=== PATIENT | male | born 1955 | race Caucasian/White ===

== ENCOUNTER 2017-09-01 13:01 | Emergency (ER) | payer OTHER ==
[~2017-09-01] VITALS: Ht 170.2 cm; Wt 59.5 kg
[2017-09-01 13:04] VITALS: Ht 170.2 cm; Wt 59.5 kg
[2017-09-01] MEDS ORDERED: KETOROLAC 30 MG INJ IM STA (13:58)
[2017-09-01] MEDS ORDERED: HYDR-906 PO (13:59)
[2017-09-01] MEDS ORDERED: IBUP800T25 PO (13:59)
[2017-09-01] MEDS ORDERED: CYCL-319 PO (13:59)
--- NOTE | 2017-09-01 14:06 | ERD ---
ER Documentation Chief Complaint Chief Complaint lower back pain since friday HPI Patient is a 62-year-old male who presents with right-sided lower back pain he has had since Friday. 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 He has been taking Aleve and Motrin but it does not help. He denies any bowel or bladder incontinence or saddle anesthesia. Denies any dysuria hematuria increased urinary frequency. Pain is worse with movement. Denies any fever. ROS All systems reviewed and are negative except as per history of present illness. Medications Home Meds Active Scripts Hydrocodone/Acetaminophen (Bantam 5-325 Tablet) 1 Each Tablet, 1 TAB PO Q6H Y for PAIN, #20 TAB Prov:FARZANEH MONTEMAYOR PA-C 09/01/17 Ibuprofen* (Motrin*) 800 Mg Tab, 800 MG PO Q6, #30 TAB Prov:FARZANEH MONTEMAYOR PA-C 09/01/17 Cyclobenzaprine Hcl* (Cyclobenzaprine Hcl*) 10 Mg Tablet, 10 MG PO QHS, #15 TAB Prov:FARZANEH MONTEMAYOR PA-C 09/01/17 FmHx Family History: No diabetes Physical Exam Vitals Vital Signs Date Time Temp Pulse Resp B/P Pulse Ox O2 Delivery O2 Flow Rate FiO2 09/01/17 13:04 99.2 88 18 106/64 96 Physical Exam INITIAL VITAL SIGNS: Reviewed by me GENERAL: Awake, alert and oriented x 4, well appearing, nontoxic, speaking in full sentences. No acute distress HEAD: Atraumatic NECK: Supple. No masses. Full range of motion. No meningismus. No midline tenderness. RESPIRATORY: Clear to auscultation bilaterally. Symmetric chest wall rise. No wheezing or rales. No accessory muscle use. CV: Regular rate and rhythm. No murmurs, rubs, or gallops. ABDOMEN: Soft, non-distended. Nontender. Negative Bertrand. Negative McBurneys point tenderness. No CVA tenderness bilaterally. No guarding. No rebound. EXTREMITIES: No clubbing or cyanosis. No edema. Moving all extremities normally. BACK: No midline tenderness to palpation. No step-offs. Results 24 hrs Current Medications Medications (Trade) Dose Ordered Sig/Lan Route PRN Reason Start Time Stop Time Status Last Admin Dose Admin Ketorolac Tromethamine (Toradol) 30 mg ONCE STAT IM 09/01/17 13:58 09/01/17 13:59 DC Procedures/MDM The differential diagnosis includes but is not limited to muscle strain, ligament strain, contusion, arthritis, discogenetic disease, non-musculoskeletal , cauda equina syndrome, cord compression, abscess and others. Patient's pain is most likely musculoskeletal. He is ambulatory neurovascular intact. He has no bowel or bladder incontinence or saddle anesthesia. He has no urinary symptoms. I offered an x-ray but he declined but accepted Toradol. I discharged her with ibuprofen, Flexeril, and a small amount of Bantam. Patient counseled regarding my diagnostic impression and care plan. Prior to discharge all questions answered. Pt agrees with treatment plan and understands strict return precautions. Pt is instructed to follow up with primary care provider within 24-48 hours. Precautionary instructions provided including instructions to return to the ER if not improving or for any worsening or changing symptoms or concerns. Departure Diagnosis: Primary Impression: Back pain Condition: Stable Patient Instructions: Back Pain (Acute Or Chronic) Additional Instructions: Call your primary care doctor TOMORROW for an appointment during the next 1-2 days.See the doctor sooner or return here if your condition worsens before your appointment time. FARZANEH MONTEMAYOR PA-C Sep 01, 2017 14:06
== END 2017-09-01 14:15 | disposition home or self-care (01) ==
LOC: FTE 13:01
DX: M54.5 Low back pain (principal)
CPT/HCPCS: 96372; J1885; Z7502

== ENCOUNTER 2018-09-30 17:30 | Emergency (ER) | END 2018-09-30 19:22 | disposition home or self-care (01) ==

== ENCOUNTER 2019-01-08 15:32 | Inpatient (IN) | payer OTHER ==
[~2019-01-08] VITALS: Ht 162.6 cm; Wt 60.6 kg
[~2019-01-08 15:32] MED LIST: ALBU18HF INHALATION; ATOR40TA68 PO; IBUP800T48 PO
[2019-01-08] MEDS ORDERED: SODIUM CHLORIDE 0.9% 1L BAG IV* STA (15:49)
[2019-01-08] MEDS ORDERED: SIMV40TA2 PO (17:14)
[2019-01-08] MEDS ORDERED: LEVOFLOXACIN 750MG/D5W (PMX) 150 ML IVPB ONE (17:30)
[2019-01-08] MEDS ORDERED: KETOROLAC 15 MG INJ IV STA (17:48)
[2019-01-08] MEDS ORDERED: ACETAMINOPHEN 325 MG TAB PO ONE (18:00)
--- NOTE | 2019-01-08 20:06 | ERD ---
ER Documentation Chief Complaint Chief Complaint pt bib self with c/o fever for a few days HPI This is a 63-year-old male with a past medical history of hyperlipidemia who is presenting with fever, chills, body aches, productive cough of clear/yellow sputum, nausea but no vomiting and mild shortness of breath. The patient also reports waxing and waning palpitations, and he feels very warm. He does not endorse any exacerbating or alleviating factors. The patient has had no headache or vision changes. The patient does not endorse neck or back pain. The patient denies lightheadedness or dizziness. The patient has had no chest pain or trouble breathing. The patient denies nausea or vomiting. The patient denies abdominal pain. The patient denies changes to bowel movements or urination. The patient has had no focal deficits. The patient has had no weakness or numbness or tingling to the face or extremities. ROS All systems reviewed and are negative except as per history of present illness. Medications Home Meds Reported Medications Simvastatin* (Zocor*) 40 Mg Tablet, 40 MG PO QHS, #30 TAB 01/08/19 Discontinued Reported Medications Atorvastatin* (Atorvastatin*) 40 Mg Tablet, 40 MG PO QHS, #30 TAB 09/30/18 Discontinued Scripts Albuterol Sulfate* (Ventolin HFA*) 18 Gm Hfa.aer.ad, 2 PUFF INHALATION Q4H, #1 INHALER Prov:HUE STEPHENS MD 09/30/18 Ibuprofen* (Motrin*) 800 Mg Tab, 800 MG PO Q6H PRN for PAIN AND OR ELEVATED TEMP, #30 TAB Prov:HUE STEPHENS MD 09/30/18 Allergies Allergies: Coded Allergies: No Known Allergy (Unverified , 09/30/18) PMhx/Soc Medical and Surgical Hx: pt denies Medical Hx, pt denies Surgical Hx Hx Cardiac Disorders: Yes (Hyperlipidemia) Hx Miscellaneous Medical Probl: Yes (back pain) Hx Alcohol Use: No Hx Substance Use: No Hx Tobacco Use: No Smoking Status: Never smoker FmHx Family History: No diabetes Physical Exam Vitals Vital Signs Date Temp Pulse Resp B/P (MAP) Pulse Ox O2 O2 Flow FiO2 Time Delivery Rate 01/08/19 101.0 19:30 01/08/19 102 23 97/62 (74) 93 Nasal 2.0 19:17 Cannula 01/08/19 103.1 17:55 01/08/19 103.1 114 16 106/62 98 Nasal 16:42 (77) Cannula 01/08/19 Nasal 2 15:55 Cannula 01/08/19 104.6 134 20 113/57 87 15:35 (75) Physical Exam Const: No apparent distress, well-developed, well-nourished Head: Normocephalic, Atraumatic Eyes: Normal Conjunctiva. Extraocular movements intact. Pupils equal, round and reactive to light ENT: Normal External Ears, Nose and Mouth. Neck: Full range of motion. No meningismus. Resp: Decreased breath sounds in the right lung base. No wheezes, rales or rhonchi. No respiratory distress. Cardio: Regular rhythm. Tachycardia. No murmurs, rubs or gallops Abd: Soft, non tender, non distended. Normal bowel sounds Skin: No petechiae or rashes Back: No midline tenderness. No CVA tenderness Ext: No cyanosis, or edema Neur: Awake and alert, oriented 4. Cranial nerves intact. No facial droop. Normal strength, sensation and coordination. Psych: Normal Mood and Affect Result Diagram: 01/08/19 1556 01/08/19 1556 Results 24 hrs Laboratory Tests Test 01/08/19 15:55 01/08/19 15:56 Urine Color YELLOW Urine Clarity CLEAR Urine pH 6.0 Urine Specific [place] 1.013 Urine Ketones NEGATIVE mg/dL Urine Nitrite NEGATIVE mg/dL Urine Bilirubin NEGATIVE mg/dL Urine Urobilinogen NEGATIVE mg/dL Urine Leukocyte Esterase NEGATIVE [place]/ul Urine Hemoglobin NEGATIVE mg/dL Urine Glucose NEGATIVE mg/dL Urine Total Protein NEGATIVE mg/dl POC Venous Lactate 1.3 mmol/L White Blood Count 9.4 10^3/ul Red Blood Count 4.67 10^6/ul Hemoglobin 13.9 g/dl Hematocrit 41.7 % Mean Corpuscular Volume 89.3 fl Mean Corpuscular Hemoglobin 29.8 pg Mean Corpuscular Hemoglobin Concent 33.3 g/dl Red Cell Distribution Width 12.4 % Platelet Count 208 10^3/UL Mean Platelet Volume 9.2 fl Immature Granulocytes % 0.200 % Neutrophils % 88.9 % Lymphocytes % 7.7 % Monocytes % 1.8 % Eosinophils % 1.0 % Basophils % 0.4 % Nucleated Red Blood Cells % 0.0 /100WBC Immature Granulocytes # 0.020 10^3/ul Neutrophils # 8.4 10^3/ul Lymphocytes # 0.7 10^3/ul Monocytes # 0.2 10^3/ul Eosinophils # 0.1 10^3/ul Basophils # 0.0 10^3/ul Nucleated Red Blood Cells # 0.0 10^3/ul Prothrombin Time 12.0 Sec Prothrombin Time Ratio 0.9 INR International Normalized Ratio 0.88 Activated Partial Thromboplast Time 28.2 Sec Sodium Level 140 mmol/L Potassium Level 3.7 mmol/L Chloride Level 103 mmol/L Carbon Dioxide Level 27 mmol/L Anion Gap 10 Blood Urea Nitrogen 16 mg/dl Creatinine 1.23 mg/dl Est Glomerular Filtrat Rate mL/min 59 mL/min Glucose Level 108 mg/dl Calcium Level 9.3 mg/dl Total Bilirubin 0.2 mg/dl Direct Bilirubin 0.00 mg/dl Indirect Bilirubin 0.2 mg/dl Aspartate Amino Transf (AST/SGOT) 34 IU/L Alanine Aminotransferase (ALT/SGPT) 29 IU/L Alkaline Phosphatase 70 IU/L Troponin I < 0.012 ng/ml Total Protein 7.2 g/dl Albumin 4.4 g/dl Globulin 2.80 g/dl Albumin/Globulin Ratio 1.57 Current Medications Medications Dose Sig/Lan Start Time Status Last (Trade) Ordered Route PRN Stop Time Admin Dose Reason Admin Sodium 1,820 ml BOLUS OVER 2 01/08/19 DC 01/08/19 Chloride HOURS STAT 15:49 01/08/19 16:18 (NS) IV* 15:50 150 ml @ ONCE ONCE 01/08/19 DC 01/08/19 Levofloxacin/ 100 mls/hr IVPB 17:30 01/08/19 17:45 Dextrose 18:59 Ketorolac 15 mg ONCE STAT 01/08/19 DC 01/08/19 Tromethamine IV 17:48 01/08/19 17:55 (Toradol) 17:49 650 mg ONCE ONCE 01/08/19 DC 01/08/19 Acetaminophen PO 18:00 01/08/19 17:55 (Tylenol 18:01 Tab) Procedures/MDM MDM The patient's presentation warrants further investigation. Previous medical records, if available, were reviewed. LABS The patient's laboratory testing was obtained and reviewed. No emergent treatment was required unless described below. CBC: No E/o of systemic infection or thrombocytopenia. Mild normocytic anemia. Chemistry: No E/o severe acidosis or alkalosis or renal failure or liver disease or diabetic ketoacidosis PT/INR: No E/o significant coagulopathy Lactate: No E/o severe sepsis Troponin: No E/o acute ischemia Urine: No E/o acute infection or hematuria Influenza: Negative EKG EKG read by me: Rate/Rhythm: Sinus tachycardia at 113 bpm Intervals: Normal [place]: Normal Impression: No evidence of acute ischemia. Sinus tachycardia IMAGING Imaging and Radiology interpretation reviewed. CXR FINDINGS: The cardiomediastinal silhouette is within normal limits. Mild opacity in the medial right lung base. There is no evidence of significant pleural e ffusion or pneumothorax. No suspicious osseous lesions. IMPRESSION: Mild opacity in the medial right lung base may represent atelectasis or infiltrate. Electronically viewed and signed by Physician Fabricio on 01/08/2019 16:35 TREATMENT/DISPOSITION The patient is presenting with symptoms most consistent with pneumonia. The patient was tachycardic and febrile when he first arrived. A septic workup was completed. The patient has no evidence of endorgan damage. The patient's lactic acid is normal. I have low suspicion for sepsis in this patient and I do not feel the patient requires admission for further management. The patient was given a sepsis bolus in the emergency department. The patient was also given a dose of Levaquin for what appears to be a right lower lobe pneumonia. The patient was treated with Toradol and Tylenol for his fever. He may continue to treat his fever at home with Tylenol or ibuprofen. The patient will require antibiotics in an outpatient setting. Upon reevaluation of the patient, symptoms have improved. No emergent diagnoses were identified. At this time, I feel that the patient stable for discharge. The patient was instructed to follow-up with a primary care physician in 1-3 days. The patient will be given strict precautions with which to return to the emergency department. Prescriptions: Levaquin, ibuprofen Disclaimer: Inadvertent spelling and grammatical errors are likely due to EHR/dictation software use and do not reflect on the overall quality of patient care. Note that the electronic time recorded on this note does not necessarily reflect the actual time of the patient encounter. Departure Diagnosis: Primary Impression: Right lower lobe pneumonia Pneumonia type: due to unspecified organism Qualified Codes: J18.1 - Lobar pneumonia, unspecified organism Additional Impressions: Fever Fever type: unspecified Qualified Codes: R50.9 - Fever, unspecified Tachycardia Myalgia Normocytic anemia Condition: Stable RIIS AGUILERA MD Jan 08, 2019 20:05
[2019-01-08] MEDS ORDERED: IBUP-1542 PO (20:08)
[2019-01-08] MEDS ORDERED: LEVO750T25 PO (20:08)
[2019-01-08] MEDS ORDERED: ACET500C5 PO (20:08)
[2019-01-08] MEDS ORDERED: ACETAMINOPHEN 325 MG TAB PO PRN (21:00)
[2019-01-08] MEDS ORDERED: ONDANSETRON 4 MG INJ IV PRN (21:00)
[2019-01-08 22:49] VITALS: PULSE 95
[2019-01-08 23:00] VITALS: Ht 162.6 cm; Wt 60.6 kg
[2019-01-08 23:23] VITALS: BP 96/53; PULSE 94; RESP 20
--- NOTE | 2019-01-08 23:57 | HP ---
Date/Time of Note Date/Time of Note DATE: 01/08/19 TIME: 23:57 Assessment/Plan VTE Prophylaxis Pharmacological prophylaxis: heparin Lines/Catheters IV Catheter Type (from Nrsg): [place] Assessment/Plan Assessment/Plan 1. Sepsis: Secondary to pneumonia -IV antibiotic, IV fluid -Follow-up culture results -Influenza negative 2. Dyslipidemia: Continue statin Result Diagram: 01/08/19 1556 01/08/19 1556 Results 24hrs Laboratory Tests Test 01/08/19 15:55 01/08/19 15:56 01/08/19 21:16 Urine Color YELLOW Urine Clarity CLEAR Urine pH 6.0 Urine Specific [place] 1.013 Urine Ketones NEGATIVE Urine Nitrite NEGATIVE Urine Bilirubin NEGATIVE Urine Urobilinogen NEGATIVE Urine Leukocyte Esterase NEGATIVE Urine Hemoglobin NEGATIVE Urine Glucose NEGATIVE Urine Total Protein NEGATIVE POC Venous Lactate 1.3 White Blood Count 9.4 Red Blood Count 4.67 L Hemoglobin 13.9 L Hematocrit 41.7 L Mean Corpuscular Volume 89.3 Mean Corpuscular Hemoglobin 29.8 Mean Corpuscular Hemoglobin Concent 33.3 Red Cell Distribution Width 12.4 Platelet Count 208 Mean Platelet Volume 9.2 Immature Granulocytes % 0.200 Neutrophils % 88.9 H Lymphocytes % 7.7 L Monocytes % 1.8 Eosinophils % 1.0 Basophils % 0.4 Nucleated Red Blood Cells % 0.0 Immature Granulocytes # 0.020 Neutrophils # 8.4 H Lymphocytes # 0.7 L Monocytes # 0.2 L Eosinophils # 0.1 Basophils # 0.0 Nucleated Red Blood Cells # 0.0 Prothrombin Time 12.0 Prothrombin Time Ratio 0.9 INR International Normalized Ratio 0.88 Activated Partial Thromboplast Time 28.2 Sodium Level 140 Potassium Level 3.7 Chloride Level 103 Carbon Dioxide Level 27 Anion Gap 10 Blood Urea Nitrogen 16 Creatinine 1.23 Est Glomerular Filtrat Rate mL/min 59 L Glucose Level 108 Calcium Level 9.3 Total Bilirubin 0.2 Direct Bilirubin 0.00 Indirect Bilirubin 0.2 Aspartate Amino Transf (AST/SGOT) 34 Alanine Aminotransferase (ALT/SGPT) 29 Alkaline Phosphatase 70 Troponin I < 0.012 Total Protein 7.2 Albumin 4.4 Globulin 2.80 Albumin/Globulin Ratio 1.57 Lactic Acid Level 1.2 HPI/ROS Admit Date/Time Admit Date/Time Jan 08, 2019 at 20:52 Hx of Present Illness This is a 63-year-old male with a history of dyslipidemia who presents the ER complaining of fever/chills, cough and nausea. Symptoms been going on for the past few days. Cough has been pretty much dry. When he presented to ER, he was febrile with a temperature of 1 4.6, tachycardic with heart rate of 134 and hypoxic with O2 sat of 87%. Initial blood pressure was 113/57 but at one point he was hypotensive with a blood pressure of 83/60. Chest x-ray shows mild opacity in the right lung base. PMH/Family/Social Past Medical History Medications Current Medications Ondansetron HCl (Zofran Inj) 4 mg ER BRIDGE PRN IV NAUSEA/VOMITING; Start 01/08/19 at 21:00; Stop 01/09/19 at 20:59 Acetaminophen (Tylenol Tab) 650 mg ER BRIDGE PRN PO .MILD PAIN 1-3 OR TEMP; Start 01/08/19 at 21:00; Stop 01/09/19 at 20:59 Coded Allergies: No Known Allergy (Unverified , 09/30/18) Social History Smoking Status: Light tobacco smoker Exam/Review of Systems Vital Signs Vitals Vital Signs Date Temp Pulse Resp B/P (MAP) Pulse Ox O2 O2 Flow FiO2 Time Delivery Rate 01/08/19 94 20 96/53 (67) 96 Nasal 2.0 23:23 Cannula 01/08/19 99.4 21:21 Exam Exam Past Medical History: see hpi Past Surgical History Past Surgical Hx: other (see hpi) Family History Significant Family History: no pertinent family hx Social History Alcohol Use: other Smoking Status: Unknown if ever smoked Drug Use: other Medications Exam Eyes: PERRL ENMT: mucosa pink and moist Respiratory: normal air movement Cardiovascular: nl pulses Gastrointestinal: soft Extremities: normal pulses DAHLIA GUILLORY MD Jan 08, 2019 23:57
[2019-01-09] VITALS (10 sets, daily range): BP systolic 102–119; BP diastolic 58–64; PULSE 85–111; RESP 16–18
[2019-01-09] MEDS ORDERED: HYDROCODONE/APAP (5/325) TAB PO PRN
[2019-01-09] MEDS ORDERED: NACL 0.9% 3 ML SYG IV SCH
[2019-01-09] MEDS ORDERED: ONDANSETRON 4 MG INJ IV PRN
[2019-01-09] MEDS ORDERED: ALBUTEROL/IPRATROPIUM (NEB) 3 ML AMP HHN PRN
[2019-01-09] MEDS ORDERED: SOD CHLORIDE 0.9% 1,000 ML IV ONE (00:30)
[2019-01-09] MEDS: SOD CHLORIDE 0.9% 1,000 ML IV SCH ×3 (01:23→19:08)
[2019-01-09] MEDS: ACETAMINOPHEN 325 MG TAB PO PRN ×2 (05:52→20:11)
[2019-01-09] MEDS ORDERED: AL HYDROX/MG HYDROX/SIMETH 30 ML CUP PO PRN (06:00)
[2019-01-09] MEDS: CEFTRIAXONE 1 GM/50 ML (PMX) 50 ML IVPB SCH ×2 (09:10→20:11)
[2019-01-09] MEDS: AZITHROMYCIN 500MG/NS (PMX) 250 ML IVPB SCH (09:13)
[2019-01-09] MEDS: FAMOTIDINE 20 MG TAB PO SCH (09:13)
--- NOTE | 2019-01-09 10:35 | PN ---
Date/Time of Note Date/Time of Note DATE: 01/09/19 TIME: 10:35 Objective Vitals Vital Signs Date Temp Pulse Resp B/P (MAP) Pulse Ox O2 O2 Flow FiO2 Time Delivery Rate 01/09/19 85 08:00 01/09/19 99.7 18 102/58 95 Nasal 07:20 (73) Cannula 01/08/19 2.0 23:23 Intake and Output 01/08/19 01/08/19 01/09/19 1515:00 23:00 07:00 IntakeIntake Total 900 ml OutputOutput Total 900 ml BalanceBalance 0 ml Results Result Diagram: 01/08/19 1556 01/08/19 1556 Medications Medications Current Medications Ondansetron HCl (Zofran Inj) 4 mg ER BRIDGE PRN IV NAUSEA/VOMITING; Start 01/08/19 at 21:00; Stop 01/09/19 at 20:59 Acetaminophen (Tylenol Tab) 650 mg ER BRIDGE PRN PO .MILD PAIN 1-3 OR TEMP; Start 01/08/19 at 21:00; Stop 01/09/19 at 20:59 Sodium Chloride 1,000 ml @ 100 mls/hr Q10H IV Last administered on 01/09/19at 01:23; Admin Dose 100 MLS/HR; Start 01/09/19 at 00:00; Stop 01/10/19 at 23:00 IV Flush (NS 3 ml) 3 ml PER PROTOCOL IV ; Start 01/09/19 at 00:00 Ondansetron HCl (Zofran Inj) 4 mg Q6H PRN IV NAUSEA/VOMITING; Start 01/09/19 at 00:00 Acetaminophen (Tylenol Tab) 650 mg Q6H PRN PO .PAIN 1-3 OR TEMP Last administered on 01/09/19at 05:52; Admin Dose 650 MG; Start 01/09/19 at 00:00 Acetaminophen/ Hydrocodone Bitart ([place] (5/325)) 1 tab Q6H PRN PO .PAIN 4-6; Start 01/09/19 at 00:00 Albuterol/ Ipratropium (Duoneb) 3 ml Q2H RESP THERAPY PRN HHN SHORTNESS OF BREATH; Start 01/09/19 at 00:00 Ceftriaxone Sodium 50 ml @ 100 mls/hr Q12H IVPB Last administered on 01/09/19at 09:10; Admin Dose 100 MLS/HR; Start 01/09/19 at 09:00 Azithromycin 250 ml @ 250 mls/hr DAILY IVPB Last administered on 01/09/19at 09: 13; Admin Dose 250 MLS/HR; Start 01/09/19 at 09:00 Atorvastatin Calcium (Lipitor) 20 mg DAILY@21 PO ; Start 01/09/19 at 21:00 Influenza Virus Vaccine Quadrival (Fluzone) 0.5 ml ONCE ONCE IM* ; Start 01/10/19 at 10:00; Stop 01/10/19 at 10:01 Al Hydrox/Mg Hydrox/Simethicone (Mag-Al Plus) 30 ml Q6H PRN PO GASTROINTESTINAL UPSET; Start 01/09/19 at 06:00 Famotidine (Pepcid) 20 mg DAILY PO Last administered on 01/09/19at 09:13; Admin Dose 20 MG; Start 01/09/19 at 09:00 Guaifenesin/ Codeine Phosphate (Robitussin Ac Liquid Cup) 5 ml Q4H PRN PO cough; Start 01/09/19 at 10:30; Status UNV Albuterol/ Ipratropium (Duoneb) 3 ml Q6HWA RESP THERAPY HHN ; Start 01/09/19 at 14:00; Status UNV VTE Prophylaxis Risk score (from [place])>0 risk: 2 [place] [facility] [place] Lines/Catheters IV Catheter Type: White in Place: No Assessment/Plan Hospital Course Subjective Patient still complaining of shortness of breath and persistent cough keeping him up Objective Physical exam General: Patient is laying in bed and answers questions appropriately Mentation: Patient is alert and oriented 4, Head: Normocephalic atraumatic Eyes: EOMI, pupils reactive to light Neck: Supple, nontender, midline Respiratory: Wheezing to auscultation bilaterally, but worse on the right Cardiovascular: regular rate, no obvious murmurs Gastrointestinal: non-tender to palpation, bowel sounds heard. Neurological: Moves all extremities spontaneously Skin: No new skin lesions Assessment and plan Pneumonia -DuoNeb -Antitussives as needed -IV antibiotic -CT pending Sepsis -Secondary to above -Culture Dyslipidemia -Continue home meds Disposition -Follow-up with CT of the chest, continue IV antibiotics, patient may go home after 48 hours of being afebrile. Likely Friday. CAROL OLGUIN Jan 09, 2019 10:35
[2019-01-09] MEDS: GUAIFENESIN/CODEINE 5ML CUP PO PRN ×2 (12:59→20:12)
[2019-01-09] MEDS: ALBUTEROL/IPRATROPIUM (NEB) 3 ML AMP HHN SCH ×3 (14:00→19:42)
[2019-01-09] MEDS: ATORVASTATIN 20 MG TAB PO SCH (20:11)
[2019-01-09] MEDS ORDERED: NON-FORMULARY/PATIENT OWN MED (Simvastatin* (Zocor*) 40 MG) PO SCH (21:00)
[2019-01-10] VITALS (12 sets, daily range): BP systolic 93–115; BP diastolic 51–62; PULSE 80–112; RESP 18–25
[2019-01-10] MEDS: ACETAMINOPHEN 325 MG TAB PO PRN ×2 (03:54→16:20)
[2019-01-10] MEDS: SOD CHLORIDE 0.9% 1,000 ML IV SCH ×2 (06:32→16:00)
[2019-01-10] MEDS: AZITHROMYCIN 500MG/NS (PMX) 250 ML IVPB SCH (08:30)
[2019-01-10] MEDS: CEFTRIAXONE 1 GM/50 ML (PMX) 50 ML IVPB SCH (08:30)
[2019-01-10] MEDS: FAMOTIDINE 20 MG TAB PO SCH (08:30)
[2019-01-10] MEDS: ALBUTEROL/IPRATROPIUM (NEB) 3 ML AMP HHN SCH ×3 (09:26→19:50)
[2019-01-10] MEDS: PIPER-TAZO 3.375 GM IV (PMX) 100 ML IVPB SCH ×2 (12:59→20:29)
--- NOTE | 2019-01-10 13:31 | PN ---
Date/Time of Note Date/Time of Note DATE: 01/10/19 TIME: 13:28 Objective Vitals Vital Signs Date Temp Pulse Resp B/P (MAP) Pulse Ox O2 O2 Flow FiO2 Time Delivery Rate 01/10/19 97.6 101 22 104/60 96 Nasal 11:23 (75) Cannula 01/10/19 2.0 09:26 01/09/19 28 19:43 Intake and Output 01/09/19 01/09/19 01/10/19 1414:59 22:59 06:59 IntakeIntake Total 2020 ml 1650 ml OutputOutput Total 2475 ml 1950 ml BalanceBalance -455 ml -300 ml Results Result Diagram: 01/10/19 0543 01/10/1943 Medications Medications Current Medications Sodium Chloride 1,000 ml @ 100 mls/hr Q10H IV Last administered on 01/10/19at 06:32; Admin Dose 100 MLS/HR; Start 01/09/19 at 00:00; Stop 01/10/19 at 23:00 IV Flush (NS 3 ml) 3 ml PER PROTOCOL IV ; Start 01/09/19 at 00:00 Ondansetron HCl (Zofran Inj) 4 mg Q6H PRN IV NAUSEA/VOMITING; Start 01/09/19 at 00:00 Acetaminophen (Tylenol Tab) 650 mg Q6H PRN PO .PAIN 1-3 OR TEMP Last ad ministered on 01/10/19at 03:54; Admin Dose 650 MG; Start 01/09/19 at 00:00 Acetaminophen/ Hydrocodone Bitart ([place] (5/325)) 1 tab Q6H PRN PO .PAIN 4-6; Start 01/09/19 at 00:00 Albuterol/ Ipratropium (Duoneb) 3 ml Q2H RESP THERAPY PRN HHN SHORTNESS OF BREATH; Start 01/09/19 at 00:00 Atorvastatin Calcium (Lipitor) 20 mg DAILY@21 PO Last administered on 01/09/19at 20:11; Admin Dose 20 MG; Start 01/09/19 at 21:00 Al Hydrox/Mg Hydrox/Simethicone (Mag-Al Plus) 30 ml Q6H PRN PO GASTROINTESTINAL UPSET; Start 01/09/19 at 06:00 Famotidine (Pepcid) 20 mg DAILY PO Last administered on 01/10/19 08:30; Admin D ose 20 MG; Start 01/09/19 at 09:00 Guaifenesin/ Codeine Phosphate (Robitussin Ac Liquid Cup) 5 ml Q4H PRN PO cough Last administered on 01/09/19 20:12; Admin Dose 5 ML; Start 01/09/19 at 10:30 Albuterol/ Ipratropium (Duoneb) 3 ml Q6HWA RESP THERAPY HHN Last administered on 01/10/19 09:26; Admin Dose 3 ML; Start 01/09/19 at 14:00 Piperacillin Sod/ Tazobactam Sod 100 ml @ 200 mls/hr Q6 IVPB Last administered on 01/10/19 12:59; Admin Dose 200 MLS/HR; Start 01/10/19 at 12:00 VTE Prophylaxis Risk score (from [facility] [place]0 risk: 3 SCD applied (from [facility] [place]): Yes Lines/Catheters IV Catheter Type: White in Place: No Assessment/Plan Hospital Course Subjective Patient has shortness of breath still. Objective Physical exam General: Patient is laying in bed and answers questions appropriately Mentation: Patient is alert and oriented 4, Head: Normocephalic atraumatic Eyes: EOMI, pupils reactive to light Neck: Supple, nontender, midline Respiratory: Wheezing to auscultation bilaterally, but worse on the right Cardiovascular: regular rate, no obvious murmurs Gastrointestinal: non-tender to palpation, bowel sounds heard. Neurological: Moves all extremities spontaneously Skin: No new skin lesions Assessment and plan Pneumonia -DuoNeb -Antitussives as needed -IV antibiotic changed to Zosyn -CT showing extensive multifocal pneumonia Sepsis -Secondary to above -Culture Dyslipidemia -Continue home meds Disposition -Continued fever, shortness of breath, IV antibiotic change, monitor. CAROL OLGUIN Jan 10, 2019 13:31
[2019-01-10] MEDS ORDERED: POTASSIUM PHOSPHATE 15 MM in SOD CHLORIDE 0.9% 250 ML IVPB ONE (15:00)
[2019-01-10] MEDS: BUDESONIDE (NEB) 0.5MG/2ML AMP HHN SCH (20:09)
[2019-01-10] MEDS: ATORVASTATIN 20 MG TAB PO SCH (20:29)
[2019-01-10] MEDS: GUAIFENESIN/CODEINE 5ML CUP PO PRN (21:32)
[2019-01-11] VITALS (12 sets, daily range): BP systolic 97–155; BP diastolic 50–86; PULSE 60–100; RESP 18
[2019-01-11] MEDS: PIPER-TAZO 3.375 GM IV (PMX) 100 ML IVPB SCH ×5 (00:33→23:05)
[2019-01-11] MEDS: ACETAMINOPHEN 325 MG TAB PO PRN ×3 (00:38→23:06)
[2019-01-11] MEDS: GUAIFENESIN/CODEINE 5ML CUP PO PRN (01:51)
[2019-01-11] MEDS: FAMOTIDINE 20 MG TAB PO SCH (09:27)
[2019-01-11] MEDS: ALBUTEROL/IPRATROPIUM (NEB) 3 ML AMP HHN SCH ×3 (09:42→20:03)
[2019-01-11] MEDS: BUDESONIDE (NEB) 0.5MG/2ML AMP HHN SCH ×2 (09:44→20:03)
--- NOTE | 2019-01-11 10:11 | PN ---
Date/Time of Note Date/Time of Note DATE: 01/11/19 TIME: 10:11 Assessment/Plan VTE Prophylaxis Risk score (from Ns)>0 risk: 3 SCD applied (from Ns): Yes Pharmacological prophylaxis: NA/contraindicated Pharm contraindication: low risk/ambulating Lines/Catheters IV Catheter Type (from [facility]): Peripheral IV Urinary Cath still in place: No Assessment/Plan Assessment/Plan 1. Multifocal Pneumonia - Continue on IV antibiotics and Duonebs and monitor for improvement - Zosyn started yesterday given continued fevers - CT chest results noted - if no improvement, will consult Pulm for recommendations 2. Sepsis secondary to PNA - Still with fever but WBC nl - culture results noted 3. Dyslipidemia - Continue home meds 4. Disposition - Continue current treatment. Will need to remain afebrile for 24 hrs prior to discharge Result Diagram: 01/11/19 0546 01/11/19 0546 Results 24hrs Laboratory Tests Test 01/11/19 05:46 White Blood Count 10.3 Red Blood Count 4.03 L Hemoglobin 12.2 L Hematocrit 36.5 L Mean Corpuscular Volume 90.6 Mean Corpuscular Hemoglobin 30.3 Mean Corpuscular Hemoglobin Concent 33.4 Red Cell Distribution Width 13.3 Platelet Count 140 Mean Platelet Volume 10.5 H Immature Granulocytes % 0.800 H Neutrophils % 86.9 H Lymphocytes % 8.9 L Monocytes % 3.2 Eosinophils % 0.0 Basophils % 0.2 Nucleated Red Blood Cells % 0.0 Immature Granulocytes # 0.080 H Neutrophils # 8.9 H Lymphocytes # 0.9 Monocytes # 0.3 Eosinophils # 0.0 Basophils # 0.0 Nucleated Red Blood Cells # 0.0 Sodium Level 140 Potassium Level 3.8 Chloride Level 106 Carbon Dioxide Level 24 Anion Gap 10 Blood Urea Nitrogen 10 Creatinine 1.15 Est Glomerular Filtrat Rate mL/min > 60 Glucose Level 96 Calcium Level 8.1 L Phosphorus Level 2.4 L Magnesium Level 2.1 Subjective 24 Hr Interval Summary Free Text/Dictation Patient still with mild shortness of breath, coughing and fever overnight. Appears comfortable this am. Exam/Review of Systems Exam Vitals Vital Signs Date Temp Pulse Resp B/P (MAP) Pulse Ox O2 O2 Flow FiO2 Time Delivery Rate 01/11/19 96 4.0 09:58 3/4/19 94 20 Nasal 09:56 Cannula 01/11/19 98.7 103/61 07:23 (75) 01/09/19 28 19:43 Intake and Output 01/10/19 01/10/19 01/11/19 1515:00 23:00 07:00 IntakeIntake Total 300 ml 1195 ml 1150 ml OutputOutput Total 2200 ml 1625 ml BalanceBalance 300 ml -1005 ml -475 ml Exam General: Patient is laying in bed and answers questions appropriately Neck: Supple Respiratory: Wheezing to auscultation bilaterally, worse on the right Cardiovascular: regular rate and rhythm, no obvious murmurs Gastrointestinal: soft, non-tender to palpation, bowel sounds heard. Neurological: Moves all extremities spontaneously Skin: No new skin lesions Results Results 24hrs Laboratory Tests Test 01/11/19 05:46 White Blood Count 10.3 Red Blood Count 4.03 L Hemoglobin 12.2 L Hematocrit 36.5 L Mean Corpuscular Volume 90.6 Mean Corpuscular Hemoglobin 30.3 Mean Corpuscular Hemoglobin Concent 33.4 Red Cell Distribution Width 13.3 Platelet Count 140 Mean Platelet Volume 10.5 H Immature Granulocytes % 0.800 H Neutrophils % 86.9 H Lymphocytes % 8.9 L Monocytes % 3.2 Eosinophils % 0.0 Basophils % 0.2 Nucleated Red Blood Cells % 0.0 Immature Granulocytes # 0.080 H Neutrophils # 8.9 H Lymphocytes # 0.9 Monocytes # 0.3 Eosinophils # 0.0 Basophils # 0.0 Nucleated Red Blood Cells # 0.0 Sodium Level 140 Potassium Level 3.8 Chloride Level 106 Carbon Dioxide Level 24 Anion Gap 10 Blood Urea Nitrogen 10 Creatinine 1.15 Est Glomerular Filtrat Rate mL/min > 60 Glucose Level 96 Calcium Level 8.1 L Phosphorus Level 2.4 L Magnesium Level 2.1 Medications Medication Current Medications IV Flush (NS 3 ml) 3 ml PER PROTOCOL IV ; Start 01/09/19 at 00:00 Ondansetron HCl (Zofran Inj) 4 mg Q6H PRN IV NAUSEA/VOMITING; Start 01/09/19 at 00:00 Acetaminophen (Tylenol Tab) 650 mg Q6H PRN PO .PAIN 1-3 OR TEMP Last administer ed on 01/11/19at 00:38; Admin Dose 650 MG; Start 01/09/19 at 00:00 Acetaminophen/ Hydrocodone Bitart ([place] (5/325)) 1 tab Q6H PRN PO .PAIN 4-6; Start 01/09/19 at 00:00 Albuterol/ Ipratropium (Duoneb) 3 ml Q2H RESP THERAPY PRN HHN SHORTNESS OF BREATH; Start 01/09/19 at 00:00 Atorvastatin Calcium (Lipitor) 20 mg DAILY@21 PO Last administered on 01/10/19 20:29; Admin Dose 20 MG; Start 01/09/19 at 21:00 Al Hydrox/Mg Hydrox/Simethicone (Mag-Al Plus) 30 ml Q6H PRN PO GASTROINTESTINAL UPSET; Start 01/09/19 at 06:00 Famotidine (Pepcid) 20 mg DAILY PO Last administered on 01/11/19 09:27; Admin Dose 20 MG; Start 01/09/19 at 09:00 Guaifenesin/ Codeine Phosphate (Robitussin Ac Liquid Cup) 5 ml Q4H PRN PO cough Last administered on 01/11/19 01:51; Admin Dose 5 ML; Start 01/09/19 at 10:30 Albuterol/ Ipratropium (Duoneb) 3 ml Q6HWA RESP THERAPY HHN Last administered on 01/11/19 09:42; Admin Dose 3 ML; Start 01/09/19 at 14:00 Piperacillin Sod/ Tazobactam Sod 100 ml @ 200 mls/hr Q6 IVPB Last administered on 01/11/19 05:51; Admin Dose 200 MLS/HR; Start 01/10/19 at 12:00 Budesonide (Pulmicort (Neb)) 0.5 mg BID RESP THERAPY HHN Last administered on 01/11/19 09:44; Admin Dose 0.5 MG; Start 01/10/19 at 20:00 ANKIT DOYLE MD Jan 11, 2019 10:11
[2019-01-11] MEDS: ATORVASTATIN 20 MG TAB PO SCH (20:40)
[2019-01-12] VITALS (11 sets, daily range): BP systolic 92–119; BP diastolic 52–63; PULSE 73–108; RESP 18
[2019-01-12] MEDS: PIPER-TAZO 3.375 GM IV (PMX) 100 ML IVPB SCH ×3 (06:28→17:32)
[2019-01-12] MEDS: ALBUTEROL/IPRATROPIUM (NEB) 3 ML AMP HHN SCH ×3 (07:40→19:47)
[2019-01-12] MEDS: BUDESONIDE (NEB) 0.5MG/2ML AMP HHN SCH ×2 (07:41→19:47)
[2019-01-12] MEDS: FAMOTIDINE 20 MG TAB PO SCH (09:01)
--- NOTE | 2019-01-12 10:34 | PN ---
Date/Time of Note Date/Time of Note DATE: 01/12/19 TIME: 10:34 Assessment/Plan VTE Prophylaxis Risk score (from Ns)>0 risk: 3 SCD applied (from Ns): Yes Pharmacological prophylaxis: NA/contraindicated Pharm contraindication: low risk/ambulating Lines/Catheters IV Catheter Type (from Nrsg): Peripheral IV Urinary Cath still in place: No Assessment/Plan Assessment/Plan 1. Multifocal Pneumonia - Still with fevers and ID consultation placed for further recommendations - Continue on IV antibiotics and Duonebs and monitor for improvement - CT chest results noted 2. Sepsis secondary to PNA - Still with fever but WBC nl - culture results noted 3. Dyslipidemia - Continue home meds 4. Disposition - ID consultation for antibiotic recommendations given persistent fevers daily Result Diagram: 01/11/1947 01/11/1947 Subjective 24 Hr Interval Summary Free Text/Dictation Patient continues with nightly fevers and cough with productive sputum. Exam/Review of Systems Exam Vitals Vital Signs Date Temp Pulse Resp B/P (MAP) Pulse Ox O2 O2 Flow FiO2 Time Delivery Rate 01/12/19 93 08:34 01/12/19 20 98 Nasal 4.0 07:41 Cannula 01/12/19 99.4 111/63 07:34 (79) 01/09/19 28 19:43 Intake and Output 01/11/19 01/11/19 01/12/19 1515:00 23:00 07:00 IntakeIntake Total 1000 ml 900 ml OutputOutput Total 1500 ml 950 ml BalanceBalance -500 ml -50 ml Exam General: Patient is laying in bed and answers questions appropriately Neck: Supple Respiratory: Coarse breath sounds, worse on the right Cardiovascular: regular rate and rhythm, no obvious murmurs Gastrointestinal: soft, non-tender to palpation, bowel sounds heard. Neurological: Moves all extremities spontaneously Skin: No new skin lesions Medications Medication Current Medications IV Flush (NS 3 ml) 3 ml PER PROTOCOL IV ; Start 01/09/19 at 00:00 Ondansetron HCl (Zofran Inj) 4 mg Q6H PRN IV NAUSEA/VOMITING; Start 01/09/19 at 00:00 Acetaminophen (Tylenol Tab) 650 mg Q6H PRN PO .PAIN 1-3 OR TEMP Last administered on 01/11/19at 23:06; Admin Dose 650 MG; Start 01/09/19 at 00:00 Acetaminophen/ Hydrocodone Bitart ([place] (5/325)) 1 tab Q6H PRN PO .PAIN 4-6; Start 01/09/19 at 00:00 Albuterol/ Ipratropium (Duoneb) 3 ml Q2H RESP THERAPY PRN HHN SHORTNESS OF BREATH; Start 01/09/19 at 00:00 Atorvastatin Calcium (Lipitor) 20 mg DAILY@21 PO Last administered on 01/11/19 20:40; Admin Dose 20 MG; Start 01/09/19 at 21:00 Al Hydrox/Mg Hydrox/Simethicone (Mag-Al Plus) 30 ml Q6H PRN PO GASTROINTESTINAL UPSET; Start 01/09/19 at 06:00 Famotidine (Pepcid) 20 mg DAILY PO Last administered on 01/12/19 09:01; Admin Dose 20 MG; Start 01/09/19 at 09:00 Guaifenesin/ Codeine Phosphate (Robitussin Ac Liquid Cup) 5 ml Q4H PRN PO cough Last administered on 01/11/19 01:51; Admin Dose 5 ML; Start 01/09/19 at 10:30 Albuterol/ Ipratropium (Duoneb) 3 ml Q6HWA RESP THERAPY HHN Last administered on 01/12/19 07:40; Admin Dose 3 ML; Start 01/09/19 at 14:00 Piperacillin Sod/ Tazobactam Sod 100 ml @ 200 mls/hr Q6 IVPB Last administered on 01/12/19 06:28; Admin Dose 200 MLS/HR; Start 01/10/19 at 12:00 Budesonide (Pulmicort (Neb)) 0.5 mg BID RESP THERAPY HHN Last administered on 01/12/19 07:41; Admin Dose 0.5 MG; Start 01/10/19 at 20:00 ANKIT DOYLE MD Jan 12, 2019 10:34
[2019-01-12] MEDS: ACETAMINOPHEN 325 MG TAB PO PRN (12:10)
--- NOTE | 2019-01-12 12:54 | CONS ---
DATE OF ADMISSION: 01/08/2019 DATE OF CONSULTATION: 01/12/2019 REASON FOR CONSULTATION: Antibiotic management. HISTORY OF PRESENT ILLNESS: The patient is a 63-year-old male who came in with fevers for a number of days and is being seen for antibiotic management. His past problems include: 1. Hyperlipidemia. 2. Low back pain. The patient presents with fever, chills, body aches, productive cough of clear yellow sputum, nausea. He reports intermittent palpitations and the feeling of warmth. He has no headaches or visual prob lems. PAST MEDICAL HISTORY: As outlined. FAMILY HISTORY: Noncontributory. SOCIAL HISTORY: Does not smoke, drink or abuse drugs. ALLERGIES: NONE TO PENICILLIN, SULFA OR FOODS. MEDICATIONS: Per chart. REVIEW OF SYSTEMS: As per HPI. LABORATORY STUDIES: On admission, his white count was up to 104.6. His white count was 9.4 with 90% neutrophils, hemoglobin and hematocrit of 13.9 and 41.7, platelet count 208,000. BUN and creatinine 16/1.23 and glucose of 108. Blood cultures and urine cultures were done and were negative. Influen za A and B were negative. IMAGING STUDIES: A chest x-ray showed mild opacity in the medial right lung base, which may represen t atelectasis or infiltrate. A CT scan on the of the chest showed severe extensive multifocal pn eumonia, most severe in the lung bases. Diffuse, scattered, benign, reactive mediastinal adenopathy. Atherosclerotic vascular calcifications. HOSPITAL COURSE: The patient was placed on Levaquin initially. The patient was felt to be septic se condary to pneumonia. Currently, his white count is 7.3, hemoglobin and hematocrit 12.2/36.5, platel et count 140,000. BUN and creatinine 10/1.5. Because of ongoing fevers, patient was placed on Zosyn . His temperature maximum for January 11 was 101. Currently, he is afebrile. White count is 10.3 on . PHYSICAL EXAMINATION: GENERAL: The patient is awake, responsive, in no acute distress. VITAL SIGNS: Stable. He is afebrile. Temperature maximum 101. SKIN: Without generalized rash. HEENT: Within normal limits. NECK: Supple. LYMPH NODES: None palpable. CHEST: Decreased breath sounds at the bases, especially the right base. HEART: Without murmur or gallop. He is tachycardic. ABDOMEN: Soft, nontender, without organosplenomegaly or masses. EXTREMITIES: Without cyanosis, clubbing, or edema. RECTAL AND GENITAL EXAMS: Deferred. NEUROLOGICAL EVALUATION: No focal neurological abnormalities. IMPRESSION AND PLAN: The patient is a 63-year-old male who comes in now with extensive pneumonia, pr obably bacterial, multifocal pneumonia and is currently placed on Zosyn, which is appropriate. In te maryse of his blood cultures, they are negative. Urine cultures negative. We probably should get a spu ira culture. I will dictate my findings to the hospitalist. Dictated By: FLORIN FORD MD SILVIA/NTS Conf#: [id number] DID#: [id number] CC: DAHLIA GUILLORY MD;*End*
[2019-01-12] MEDS: ATORVASTATIN 20 MG TAB PO SCH (21:41)
[2019-01-13] VITALS (13 sets, daily range): BP systolic 93–119; BP diastolic 53–67; PULSE 71–98; RESP 17–20
[2019-01-13] MEDS: PIPER-TAZO 3.375 GM IV (PMX) 100 ML IVPB SCH ×4 (01:09→17:21)
[2019-01-13] MEDS: BUDESONIDE (NEB) 0.5MG/2ML AMP HHN SCH ×2 (08:33→19:38)
[2019-01-13] MEDS: ALBUTEROL/IPRATROPIUM (NEB) 3 ML AMP HHN SCH ×3 (08:33→19:38)
[2019-01-13] MEDS: FAMOTIDINE 20 MG TAB PO SCH (09:51)
[2019-01-13] MEDS: ACETAMINOPHEN 325 MG TAB PO PRN (09:51)
[2019-01-13] MEDS: GUAIFENESIN/CODEINE 5ML CUP PO PRN (11:18)
--- NOTE | 2019-01-13 13:31 | CONS ---
Assessment/Plan Assessment/Plan Hospital Course (Demo Recall) Patient is alert ambulating in the room still with low-grade fevers, T-max 100.3, no labs this morning Microbiology: Cultures have been negative Antimicrobials: Patient remains on Zosyn Physical examination: This is a well-developed well-nourished elderly man who is alert in no distress. Head atraumatic normocephalic. Neck is supple. Chest rise symmetrical breath sounds diminished bases. Heart: S1-S2. Abdomen soft bowel sounds present. Assessment: 1. Acute hypoxemic respiratory failure 2. Multifocal pneumonia 3. Resolving sepsis Plan: Patient is clinically stable and feels better, we will will swab nares for MRSA and try to obtain sputum cultures, add oral doxycycline and levofloxacin Consultation Date/Type/Reason Admit Date/Time Jan 08, 2019 at 20:52 Initial Consult Date Type of Consult id Date/Time of Note DATE: 01/13/19 TIME: 13:30 Exam/Review of Systems Exam Vitals Vital Signs Date Temp Pulse Resp B/P (MAP) Pulse Ox O2 O2 Flow FiO2 Time Delivery Rate 01/13/19 74 12:35 01/13/19 100.3 18 94/53 (67) 96 11:29 01/13/19 Nasal 5.0 08:36 Cannula 01/09/19 28 19:43 Intake and Output 01/12/19 01/12/19 01/13/19 1414:59 22:59 06:59 IntakeIntake Total 100 ml 820 ml 640 ml OutputOutput Total 550 ml 300 ml BalanceBalance 100 ml 270 ml 340 ml Results Result Diagram: 01/11/19 0546 01/11/19 0546 Medications Medication Current Medications IV Flush (NS 3 ml) 3 ml PER PROTOCOL IV ; Start 01/09/19 at 00:00 Ondansetron HCl (Zofran Inj) 4 mg Q6H PRN IV NAUSEA/VOMITING; Start 01/09/19 at 00:00 Acetaminophen (Tylenol Tab) 650 mg Q6H PRN PO .PAIN 1-3 OR TEMP Last administered on 01/13/19at 09:51; Admin Dose 650 MG; Start 01/09/19 at 00:00 Acetaminophen/ Hydrocodone Bitart ([place] (5/325)) 1 tab Q6H PRN PO .PAIN 4-6; Start 01/09/19 at 00:00 Albuterol/ Ipratropium (Duoneb) 3 ml Q2H RESP THERAPY PRN HHN SHORTNESS OF BREATH; Start 01/09/19 at 00:00 Atorvastatin Calcium (Lipitor) 20 mg DAILY@21 PO Last administered on 01/12/19 21:41; Admin Dose 20 MG; Start 01/09/19 at 21:00 Al Hydrox/Mg Hydrox/Simethicone (Mag-Al Plus) 30 ml Q6H PRN PO GASTROINTESTINAL UPSET; Start 01/09/19 at 06:00 Famotidine (Pepcid) 20 mg DAILY PO Last administered on 01/13/19 09:51; Admin Dose 20 MG; Start 01/09/19 at 09:00 Guaifenesin/ Codeine Phosphate (Robitussin Ac Liquid Cup) 5 ml Q4H PRN PO cough Last administered on 01/13/19 11:18; Admin Dose 5 ML; Start 01/09/19 at 10:30 Albuterol/ Ipratropium (Duoneb) 3 ml Q6HWA RESP THERAPY HHN Last administered on 01/13/19 08:33; Admin Dose 3 ML; Start 01/09/19 at 14:00 Piperacillin Sod/ Tazobactam Sod 100 ml @ 200 mls/hr Q6 IVPB Last administered on 01/13/19 11:20; Admin Dose 200 MLS/HR; Start 01/10/19 at 12:00 Budesonide (Pulmicort (Neb)) 0.5 mg BID RESP THERAPY HHN Last administered on 01/13/19 08:33; Admin Dose 0.5 MG; Start 01/10/19 at 20:00 DANIEL EDDY NP Jan 13, 2019 13:31
--- NOTE | 2019-01-13 16:58 | PN ---
Date/Time of Note Date/Time of Note DATE: 01/13/19 TIME: 16:56 Assessment/Plan VTE Prophylaxis Risk score (from Ns)>0 risk: 3 SCD applied (from Ns): Yes Pharmacological prophylaxis: NA/contraindicated Pharm contraindication: low risk/ambulating Lines/Catheters IV Catheter Type (from Nrsg): Peripheral IV Urinary Cath still in place: No Assessment/Plan Assessment/Plan 1. Multifocal Pneumonia - ID consultation appreciated and adjustments made to antibiotics - Pulmonology consultation placed for further recommendations given patient still hypoxic - Continue on IV antibiotics and Duonebs and monitor for improvement - CT chest results noted 2. Sepsis secondary to PNA - Still with fever but WBC nl - culture results noted 3. Dyslipidemia - Continue home meds 4. Disposition - Pulmonology consultation placed for further recommendations given patient st ill hypoxic Result Diagram: 01/11/19 0546 01/11/19 0546 Subjective 24 Hr Interval Summary Free Text/Dictation Patient still with low grade fever and persistent coughing with productive sputum. Exam/Review of Systems Exam Vitals Vital Signs Date Temp Pulse Resp B/P (MAP) Pulse Ox O2 O2 Flow FiO2 Time Delivery Rate 01/13/19 71 16:16 01/13/19 98.2 17 93/55 (68) 96 16:09 01/13/19 Nasal 5.0 14:20 Cannula 01/09/19 28 19:43 Intake and Output 01/12/19 01/12/19 01/13/19 1515:00 23:00 07:00 IntakeIntake Total 100 ml 820 ml 640 ml OutputOutput Total 550 ml 300 ml BalanceBalance 100 ml 270 ml 340 ml Exam General: Patient is laying in bed and answers questions appropriately Neck: Supple Respiratory: Coarse breath sounds, no wheezing appreciated Cardiovascular: regular rate and rhythm, no obvious murmurs Gastrointestinal: soft, non-tender to palpation, bowel sounds heard. Neurological: Moves all extremities spontaneously Skin: No new skin lesions Medications Medication Current Medications IV Flush (NS 3 ml) 3 ml PER PROTOCOL IV ; Start 01/09/19 at 00:00 Ondansetron HCl (Zofran Inj) 4 mg Q6H PRN IV NAUSEA/VOMITING; Start 01/09/19 at 00:00 Acetaminophen (Tylenol Tab) 650 mg Q6H PRN PO .PAIN 1-3 OR TEMP Last administered on 01/13/19 09:51; Admin Dose 650 MG; Start 01/09/19 at 00:00 Acetaminophen/ Hydrocodone Bitart ([place] (5/325)) 1 tab Q6H PRN PO .PAIN 4-6; Start 01/09/19 at 00:00 Albuterol/ Ipratropium (Duoneb) 3 ml Q2H RESP THERAPY PRN HHN SHORTNESS OF BREATH; Start 01/09/19 at 00:00 Atorvastatin Calcium (Lipitor) 20 mg DAILY@21 PO Last administered on 01/12/19 21:41; Admin Dose 20 MG; Start 01/09/19 at 21:00 Al Hydrox/Mg Hydrox/Simethicone (Mag-Al Plus) 30 ml Q6H PRN PO GASTROINTESTINAL UPSET; Start 01/09/19 at 06:00 Famotidine (Pepcid) 20 mg DAILY PO Last administered on 01/13/19 09:51; Admin Dose 20 MG; Start 01/09/19 at 09:00 Guaifenesin/ Codeine Phosphate (Robitussin Ac Liquid Cup) 5 ml Q4H PRN PO cough Last administered on 01/13/19 11:18; Admin Dose 5 ML; Start 01/09/19 at 10:30 Albuterol/ Ipratropium (Duoneb) 3 ml Q6HWA RESP THERAPY HHN Last administered on 01/13/19 12:10; Admin Dose 3 ML; Start 01/09/19 at 14:00 Piperacillin Sod/ Tazobactam Sod 100 ml @ 200 mls/hr Q6 IVPB Last administered on 01/13/19 11:20; Admin Dose 200 MLS/HR; Start 01/10/19 at 12:00 Budesonide (Pulmicort (Neb)) 0.5 mg BID RESP THERAPY HHN Last administered on 01/13/19 08:33; Admin Dose 0.5 MG; Start 01/10/19 at 20:00 Doxycycline Hyclate (Vibramycin) 100 mg BID PO ; Start 01/13/19 at 21:00 Levofloxacin (Levaquin) 500 mg DAILY@06 PO ; Start 01/14/19 at 06:00 ANKIT DOYLE MD Jan 13, 2019 16:58
[2019-01-13] MEDS: DOXYCYCLINE 100 MG TAB PO SCH (21:39)
[2019-01-13] MEDS: ATORVASTATIN 20 MG TAB PO SCH (21:39)
[2019-01-14] VITALS (10 sets, daily range): BP systolic 96–115; BP diastolic 58–64; PULSE 71–94; RESP 18–20
[2019-01-14] MEDS: PIPER-TAZO 3.375 GM IV (PMX) 100 ML IVPB SCH ×5 (00:43→23:19)
[2019-01-14] MEDS: ACETAMINOPHEN 325 MG TAB PO PRN (02:00)
[2019-01-14] MEDS: GUAIFENESIN/CODEINE 5ML CUP PO PRN (02:03)
[2019-01-14] MEDS: LEVOFLOXACIN 500 MG TAB PO SCH (06:12)
[2019-01-14] MEDS: FAMOTIDINE 20 MG TAB PO SCH (08:12)
[2019-01-14] MEDS: DOXYCYCLINE 100 MG TAB PO SCH ×2 (08:12→21:26)
[2019-01-14] MEDS: ALBUTEROL/IPRATROPIUM (NEB) 3 ML AMP HHN SCH ×3 (08:40→19:47)
[2019-01-14] MEDS: BUDESONIDE (NEB) 0.5MG/2ML AMP HHN SCH ×2 (08:41→19:47)
--- NOTE | 2019-01-14 09:17 | PN ---
Date/Time of Note Date/Time of Note DATE: 01/14/19 TIME: 09:17 Assessment/Plan VTE Prophylaxis Risk score (from [facility])>0 risk: 4 SCD applied (from [facility]): Yes Pharmacological prophylaxis: NA/contraindicated Pharm contraindication: low risk/ambulating Lines/Catheters IV C[facility]ter Type (from [facility]): Peripheral IV Urinary Cath still in place: No Assessment/Plan Assessment/Plan 1. Multifocal Pneumonia - Pulmonology consultation appreciated and recommending addition of steroids - ID consultation appreciated and adjustments made to antibiotics. Will continue on Levaquin, Doxy, and Zosyn - continue bronchodilators - CT chest results noted 2. Sepsis secondary to PNA - remains afebrile with nl WBC - culture results noted 3. Dyslipidemia - Continue home meds 4. Disposition - Patient still desaturating even while on 4L supplemental O2 - Pulm and ID recommendations appreciated Result Diagram: 01/14/19 0711 01/14/19 0711 Results 24hrs Laboratory Tests Test 01/14/19 07:11 White Blood Count 4.4 #L Red Blood Count 3.76 L Hemoglobin 11.2 L Hematocrit 34.7 L Mean Corpuscular Volume 92.3 Mean Corpuscular Hemoglobin 29.8 Mean Corpuscular Hemoglobin Concent 32.3 Red Cell Distribution Width 13.2 Platelet Count 183 # Mean Platelet Volume 9.8 Immature Granulocytes % 4.800 H Neutrophils % Segmented Neutrophils % (Manual) 45 Band Neutrophils % (Manual) 6 H Lymphocytes % Lymphocytes % (Manual) 38 Reactive Lymphocytes % (Manual) 2 H Monocytes % Monocytes % (Manual) 7 Eosinophils % Basophils % Metamyelocytes % (manual) 1 H Myelocytes % (Manual) 1 H Nucleated Red Blood Cells % 1 H Immature Granulocytes # 0.210 H Neutrophils # Neutrophils # (Manual) 2.0 Band Neutrophils # 0.2 Lymphocytes (Manual) 1.6 Lymphocytes # Reactive Lymphocytes # 0.0 Monocytes # Monocytes # (Manual) 0.3 Eosinophils # Basophils # Metamyelocytes # 0.0 Myelocytes # 0.0 Nucleated Red Blood Cells # Platelet Estimate NORMAL Giant Platelets 3 H Polychromasia 1+ Sodium Level 141 Potassium Level 4.0 Chloride Level 102 Carbon Dioxide Level 30 Anion Gap 9 Blood Urea Nitrogen 12 Creatinine 0.98 Glucose Level 101 Calcium Level 8.2 L Phosphorus Level 3.2 Magnesium Level 2.5 Albumin 3.3 Subjective 24 Hr Interval Summary Free Text/Dictation Patient still with shortness of breath and coughing. No acute overnight events. No overnight fevers as well. Exam/Review of Systems Exam Vitals Vital Signs Date Temp Pulse Resp B/P (MAP) Pulse Ox O2 O2 Flow FiO2 Time Delivery Rate 01/14/19 82 09:01 01/14/19 4.0 08:49 01/14/19 20 89 Nasal 40 08:41 Cannula 01/14/19 98.3 102/64 07:37 (77) Intake and Output 01/13/19 01/13/19 01/14/19 1515:00 23:00 07:00 IntakeIntake Total 100 ml 900 ml 1020 ml OutputOutput Total 650 ml 775 ml BalanceBalance 100 ml 250 ml 245 ml Exam General: Patient is laying in bed and answers questions appropriately Neck: Supple Respiratory: Diminished breath sounds, no crackles appreciated, no wheezing appreciated Cardiovascular: regular rate and rhythm, no obvious murmurs Gastrointestinal: soft, non-tender to palpation, bowel sounds heard. Neurological: Moves all extremities spontaneously Skin: No new skin lesions Results Results 24hrs Laboratory Tests Test 01/14/19 07:11 White Blood Count 4.4 #L Red Blood Count 3.76 L Hemoglobin 11.2 L Hematocrit 34.7 L Mean Corpuscular Volume 92.3 Mean Corpuscular Hemoglobin 29.8 Mean Corpuscular Hemoglobin Concent 32.3 Red Cell Distribution Width 13.2 Platelet Count 183 # Mean Platelet Volume 9.8 Immature Granulocytes % 4.800 H Neutrophils % Segmented Neutrophils % (Manual) 45 Band Neutrophils % (Manual) 6 H Lymphocytes % Lymphocytes % (Manual) 38 Reactive Lymphocytes % (Manual) 2 H Monocytes % Monocytes % (Manual) 7 Eosinophils % Basophils % Metamyelocytes % (manual) 1 H Myelocytes % (Manual) 1 H Nucleated Red Blood Cells % 1 H Immature Granulocytes # 0.210 H Neutrophils # Neutrophils # (Manual) 2.0 Band Neutrophils # 0.2 Lymphocytes (Manual) 1.6 Lymphocytes # Reactive Lymphocytes # 0.0 Monocytes # Monocytes # (Manual) 0.3 Eosinophils # Basophils # Metamyelocytes # 0.0 Myelocytes # 0.0 Nucleated Red Blood Cells # Platelet Estimate NORMAL Giant Platelets 3 H Polychromasia 1+ Sodium Level 141 Potassium Level 4.0 Chloride Level 102 Carbon Dioxide Level 30 Anion Gap 9 Blood Urea Nitrogen 12 Creatinine 0.98 Glucose Level 101 Calcium Level 8.2 L Phosphorus Level 3.2 Magnesium Level 2.5 Albumin 3.3 Medications Medication Current Medications IV Flush (NS 3 ml) 3 ml PER PROTOCOL IV ; Start 01/09/19 at 00:00 Ondansetron HCl (Zofran Inj) 4 mg Q6H PRN IV NAUSEA/VOMITING Last administered on 01/14/19 09:11; Admin Dose 4 MG; Start 01/09/19 at 00:00 Acetaminophen (Tylenol Tab) 650 mg Q6H PRN PO .PAIN 1-3 OR TEMP Last administered on 01/14/19 02:00; Admin Dose 650 MG; Start 01/09/19 at 00:00 Acetaminophen/ Hydrocodone Bitart ([place] (5/325)) 1 tab Q6H PRN PO .PAIN 4-6; Start 01/09/19 at 00:00 Albuterol/ Ipratropium (Duoneb) 3 ml Q2H RESP THERAPY PRN HHN SHORTNESS OF BREATH; Start 01/09/19 at 00:00 Atorvastatin Calcium (Lipitor) 20 mg DAILY@21 PO Last administered on 01/13/19 21:39; Admin Dose 20 MG; Start 01/09/19 at 21:00 Al Hydrox/Mg Hydrox/Simethicone (Mag-Al Plus) 30 ml Q6H PRN PO GASTROINTESTINAL UPSET; Start 01/09/19 at 06:00 Famotidine (Pepcid) 20 mg DAILY PO Last administered on 01/14/19 08:12; Admin Dose 20 MG; Start 01/09/19 at 09:00 Guaifenesin/ Codeine Phosphate (Robitussin Ac Liquid Cup) 5 ml Q4H PRN PO cough Last administered on 01/14/19 02:03; Admin Dose 5 ML; Start 01/09/19 at 10:30 Albuterol/ Ipratropium (Duoneb) 3 ml Q6HWA RESP THERAPY HHN Last administered on 01/14/19 08:40; Admin Dose 3 ML; Start 01/09/19 at 14:00 Piperacillin Sod/ Tazobactam Sod 100 ml @ 200 mls/hr Q6 IVPB Last administered on 01/14/19 06:12; Admin Dose 200 MLS/HR; Start 01/10/19 at 12:00 Budesonide (Pulmicort (Neb)) 0.5 mg BID RESP THERAPY HHN Last administered on 01/14/19at 08:41; Admin Dose 0.5 MG; Start 01/10/19 at 20:00 Doxycycline Hyclate (Vibramycin) 100 mg BID PO Last administered on 01/14/19 08:12; Admin Dose 100 MG; Start 01/13/19 at 21:00 Levofloxacin (Levaquin) 500 mg DAILY@06 PO Last administered on 01/14/19at 06:12; Admin Dose 500 MG; Start 01/14/19 at 06:00 ANKIT DOYLE MD Jan 14, 2019 09:17
[2019-01-14] MEDS: METHYLPREDNISOLONE 40 MG INJ IV SCH ×3 (11:57→23:18)
--- NOTE | 2019-01-14 12:33 | CONS ---
DATE OF ADMISSION: 01/08/2019 DATE OF CONSULTATION: REASON FOR CONSULTATION: Shortness of breath. Thank you, Dr. Hui, for this consultation. HISTORY OF PRESENT ILLNESS: This is a 63-year-old gentleman admitted with several-day history of inc reasing cough, congestion, shortness of breath, influenza negative, was found to have fever and tachy pnea on admission. Most recent CT scan demonstrates severe extensive multifocal pneumonia and reacti ve mediastinal adenopathy. The patient is slowly improving with antibiotics, never amounted signific ant white count. He did have mild bandemia. He has significant tobacco history, continues to smoke half a pack per day, smoked for 20 plus years. PAST MEDICAL HISTORY: 1. Tobacco use. 2. Hyperlipidemia. MEDICATIONS: Per chart. ALLERGIES: NONE. SOCIAL HISTORY: Positive tobacco history. Occasional alcohol. No history of drug abuse. FAMILY HISTORY: Noncontributory. SYSTEMS REVIEW: A 12-point review of systems was negative other than mentioned above. PHYSICAL EXAMINATION: GENERAL: Well-nourished, well-developed gentleman, comfortable at rest, in no acute distress. VITAL SIGNS: Currently afebrile, pulse is 90, blood pressure 100/52, O2 saturation 96%, FiO2 of 4 li ters. NECK: Supple. No JVD or lymphadenopathy. CARDIAC: S1, S2. No added sounds or murmurs. CHEST: Diminished air entry bilaterally with rales. ABDOMEN: Soft, nontender. No guarding or rebound. EXTREMITIES: No cyanosis, clubbing, edema. NEUROLOGIC: Grossly intact. No focal deficits. LABORATORY DATA: White count 4.4, hemoglobin 11.2, platelets of 183. Chemistry within normal limits . IMPRESSION AND PLAN: Likely community-acquired pneumonia with possible chronic obstructive pulmonary disease exacerbation given extensive tobacco history. The patient will require: 1. Continue antibiotics. 2. Bronchodilators. 3. Additional steroids. 4. DVT and GI prophylaxis. 5. Advice on smoking cessation. 6. Outpatient pulmonary function testing and repeat CT to ensure resolution of infiltrates. Dictated By: GLADYS JOHNSON MD SV/JORGE Conf#: [id number] DID#: [id number] CC: ANKIT HUI MD; DAHLIA GUILLORY MD;*EndCC*
--- NOTE | 2019-01-14 13:03 | CONS ---
Assessment/Plan Assessment/Plan Hospital Course (Demo Recall) No acute changes patient still gets on and off shortness of breath he is alert ambulating in the room and looks comfortable, T-max yesterday was 100.3. WBC 4.4 platelets 183 bands 6 BUN 12 creatinine 0.98 Antimicrobials: Zosyn, Levaquin, doxycycline Microbiology: Cultures have been negative Physical examination: This is a well-developed well-nourished elderly man who is alert in no distress. Head atraumatic normocephalic. Neck is supple. Chest rise symmetrical breath sounds diminished bases. Heart: S1-S2. Abdomen soft bowel sounds present. Assessment: 1. Acute hypoxemic respiratory failure 2. Multifocal pneumonia 3. Resolving sepsis Plan: Clinically stable, continue antibiotics, await for MRSA swab and sputum cultures, follow chest x-ray in a.m. Consultation Date/Type/Reason Admit Date/Time Jan 08, 2019 at 20:52 Initial Consult Date Type of Consult id Date/Time of Note DATE: 01/14/19 TIME: 13:02 Exam/Review of Systems Exam Vitals Vital Signs Date Temp Pulse Resp B/P (MAP) Pulse Ox O2 O2 Flow FiO2 Time Delivery Rate 01/14/19 94 12:38 01/14/19 98.8 20 100/59 95 Nasal 11:18 (73) Cannula 01/14/19 4.0 08:49 01/14/19 40 08:41 Intake and Output 01/13/19 01/13/19 01/14/19 1515:00 23:00 07:00 IntakeIntake Total 100 ml 900 ml 1020 ml OutputOutput Total 650 ml 775 ml BalanceBalance 100 ml 250 ml 245 ml Results Result Diagram: 01/14/19 0711 01/14/19 0711 Results 24hrs Laboratory Tests Test 01/14/19 07:11 White Blood Count 4.4 #L Red Blood Count 3.76 L Hemoglobin 11.2 L Hematocrit 34.7 L Mean Corpuscular Volume 92.3 Mean Corpuscular Hemoglobin 29.8 Mean Corpuscular Hemoglobin Concent 32.3 Red Cell Distribution Width 13.2 Platelet Count 183 # Mean Platelet Volume 9.8 Immature Granulocytes % 4.800 H Neutrophils % Segmented Neutrophils % (Manual) 45 Band Neutrophils % (Manual) 6 H Lymphocytes % Lymphocytes % (Manual) 38 Reactive Lymphocytes % (Manual) 2 H Monocytes % Monocytes % (Manual) 7 Eosinophils % Basophils % Metamyelocytes % (manual) 1 H Myelocytes % (Manual) 1 H Nucleated Red Blood Cells % 1 H Immature Granulocytes # 0.210 H Neutrophils # Neutrophils # (Manual) 2.0 Band Neutrophils # 0.2 Lymphocytes (Manual) 1.6 Lymphocytes # Reactive Lymphocytes # 0.0 Monocytes # Monocytes # (Manual) 0.3 Eosinophils # Basophils # Metamyelocytes # 0.0 Myelocytes # 0.0 Nucleated Red Blood Cells # Platelet Estimate NORMAL Giant Platelets 3 H Polychromasia 1+ Sodium Level 141 Potassium Level 4.0 Chloride Level 102 Carbon Dioxide Level 30 Anion Gap 9 Blood Urea Nitrogen 12 Creatinine 0.98 Glucose Level 101 Calcium Level 8.2 L Phosphorus Level 3.2 Magnesium Level 2.5 Albumin 3.3 Medications Medication Current Medications IV Flush (NS 3 ml) 3 ml PER PROTOCOL IV ; Start 01/09/19 at 00:00 Ondansetron HCl (Zofran Inj) 4 mg Q6H PRN IV NAUSEA/VOMITING Last administered on 01/14/19at 09:11; Admin Dose 4 MG; Start 01/09/19 at 00:00 Acetaminophen (Tylenol Tab) 650 mg Q6H PRN PO .PAIN 1-3 OR TEMP Last administered on 01/14/19at 02:00; Admin Dose 650 MG; Start 01/09/19 at 00:00 Acetaminophen/ Hydrocodone Bitart ([place] (5/325)) 1 tab Q6H PRN PO .PAIN 4-6; Start 01/09/19 at 00:00 Albuterol/ Ipratropium (Duoneb) 3 ml Q2H RESP THERAPY PRN HHN SHORTNESS OF BREATH; Start 01/09/19 at 00:00 Atorvastatin Calcium (Lipitor) 20 mg DAILY@21 PO Last administered on 01/13/19at 21:39; Admin Dose 20 MG; Start 01/09/19 at 21:00 Al Hydrox/Mg Hydrox/Simethicone (Mag-Al Plus) 30 ml Q6H PRN PO GASTROINTESTINAL UPSET; Start 01/09/19 at 06:00 Famotidine (Pepcid) 20 mg DAILY PO Last administered on 01/14/19at 08:12; Admin Dose 20 MG; Start 01/09/19 at 09:00 Guaifenesin/ Codeine Phosphate (Robitussin Ac Liquid Cup) 5 ml Q4H PRN PO cough Last administered on 01/14/19 02:03; Admin Dose 5 ML; Start 01/09/19 at 10:30 Albuterol/ Ipratropium (Duoneb) 3 ml Q6HWA RESP THERAPY HHN Last administered on 01/14/19 08:40; Admin Dose 3 ML; Start 01/09/19 at 14:00 Piperacillin Sod/ Tazobactam Sod 100 ml @ 200 mls/hr Q6 IVPB Last administered on 01/14/19 11:29; Admin Dose 200 MLS/HR; Start 01/10/19 at 12:00 Budesonide (Pulmicort (Neb)) 0.5 mg BID RESP THERAPY HHN Last administered on 01/14/19 08:41; Admin Dose 0.5 MG; Start 01/10/19 at 20:00 Doxycycline Hyclate (Vibramycin) 100 mg BID PO Last administered on 01/14/19 08:12; Admin Dose 100 MG; Start 01/13/19 at 21:00 Levofloxacin (Levaquin) 500 mg DAILY@06 PO Last administered on 01/14/19 06:12; Admin Dose 500 MG; Start 01/14/19 at 06:00 Methylprednisolone Sodium Succinate (Solu-Medrol) 40 mg Q6 IV Last administered on 01/14/19 11:57; Admin Dose 40 MG; Start 01/14/19 at 12:00 ADNIEL EDDY NP Jan 14, 2019 13:03
[2019-01-14] MEDS: ATORVASTATIN 20 MG TAB PO SCH (21:26)
--- NOTE | 2019-01-15 01:38 | PDOCDIS ---
Discharge Instructions DIAGNOSIS Discharge Diagnosis created in error ACTIVITY: [id number] Bathing Restrictions: [id number] as per recs at accepting facility FOLLOW UP/APPOINTMENTS Follow-up Plan As per accepting hospital ([facility]) recommendations upon dis charge ROGER KNIGHT Jan 15, 2019 01:38
--- NOTE | 2019-01-15 01:40 | DS ---
Date/Time of Note Date/Time of Note DATE: 01/15/19 TIME: 01:38 Discharge Summary Admission/Discharge Info Admit Date/Time Jan 08, 2019 at 20:52 Discharge Date/Time created in Error Discharge Diagnosis Patient Condition: Stable Home Meds Active Scripts Acetaminophen* (Tylophen*) 500 Mg Capsule, 1 CAP PO Q6H PRN for PAIN AND OR ELEVATED TEMP, #20 CAP Prov:IRIS AGUILERA MD 01/08/19 Levofloxacin* (Levaquin*) 750 Mg Tablet, 750 MG PO DAILY for 5 Days, TAB Prov:IRIS AGUILERA MD 01/08/19 Ibuprofen* (Motrin*) 600 Mg Tab, 600 MG PO Q6H PRN for PAIN AND OR ELEVATED TEMP, #30 TAB Prov:IRIS AGUILERA MD 01/08/19 Reported Medications Simvastatin* (Zocor*) 40 Mg Tablet, 40 MG PO QHS, #30 TAB 01/08/19 Discontinued Reported Medications Atorvastatin* (Atorvastatin*) 40 Mg Tablet, 40 MG PO QHS, #30 TAB 09/30/18 Discontinued Scripts Albuterol Sulfate* (Ventolin HFA*) 18 Gm Hfa.aer.ad, 2 PUFF INHALATION Q4H, #1 INHALER Prov:HUE STEPHENS MD 09/30/18 Ibuprofen* (Motrin*) 800 Mg Tab, 800 MG PO Q6H PRN for PAIN AND OR ELEVATED TEMP, #30 TAB Prov:HUE STEPHENS MD 09/30/18 Time spent on discharge: > 30 minutes Pending Labs Laboratory Tests Test 01/14/19 07:11 White Blood Count 4.4 10^3/ul (4.8-10.8) Red Blood Count 3.76 10^6/ul (4.70-6.10) Hemoglobin 11.2 g/dl (14.0-18.0) Hematocrit 34.7 % (42.0-52.0) Mean Corpuscular Volume 92.3 fl (82.0-101.0) Mean Corpuscular Hemoglobin 29.8 pg (29.0-33.0) Mean Corpuscular Hemoglobin Concent 32.3 g/dl (32.0-37.0) Red Cell Distribution Width 13.2 % (11.5-14.5) Platelet Count 183 10^3/UL (140-415) Mean Platelet Volume 9.8 fl (7.4-10.4) Immature Granulocytes % 4.800 % (0.001-0.429) Neutrophils % % (39.0-77.0) Segmented Neutrophils % (Manual) 45 % (39-77) Band Neutrophils % (Manual) 6 % (0-4) Lymphocytes % % (15.0-51.0) Lymphocytes % (Manual) 38 % (15-51) Reactive Lymphocytes % (Manual) 2 % (0-0) Monocytes % % (0.0-11.0) Monocytes % (Manual) 7 % (0-11) Eosinophils % % (0.0-7.0) Basophils % % (0.0-2.0) Metamyelocytes % (manual) 1 % (0-0) Myelocytes % (Manual) 1 % (0-0) Nucleated Red Blood Cells % 1 % (0-0) Immature Granulocytes # 0.210 10^3/ul (0.0-0.031) Neutrophils # 10^3/ul (1.6-7.5) Neutrophils # (Manual) 2.0 10^3/ul (1.6-7.5) Band Neutrophils # 0.2 10^3/ul (0.0-0.6) Lymphocytes (Manual) 1.6 10^3/ul (0.8-2.9) Lymphocytes # 10^3/ul (0.8-2.9) Reactive Lymphocytes # 0.0 10^3/ul (0.0-0.0) Monocytes # 10^3/ul (0.3-0.9) Monocytes # (Manual) 0.3 10^3/ul (0.3-0.9) Eosinophils # 10^3/ul (0.0-0.5) Basophils # 10^3/ul (0.0-0.1) Metamyelocytes # 0.0 10^3/ul (0.0-0.0) Myelocytes # 0.0 10^3/ul (0.0-0.0) Nucleated Red Blood Cells # 10^3/ul (0.0-0.0) Platelet Estimate NORMAL Giant Platelets 3 % (0-0) Polychromasia 1+ (0-0) Sodium Level 141 mmol/L (135-144) Potassium Level 4.0 mmol/L (3.5-5.1) Chloride Level 102 mmol/L (97-110) Carbon Dioxide Level 30 mmol/L (21-31) Anion Gap 9 (5-13) Blood Urea Nitrogen 12 mg/dl (7-20) Creatinine 0.98 mg/dl (0.61-1.24) Glucose Level 101 mg/dl (70-220) Calcium Level 8.2 mg/dl (8.4-10.2) Phosphorus Level 3.2 mg/dl (2.5-4.9) Magnesium Level 2.5 mg/dl (1.7-2.5) Albumin 3.3 g/dl (3.3-4.9) ROGER KNIGHT Jan 15, 2019 01:40
[2019-01-15 02:17] VITALS: BP 117/62; PULSE 67; RESP 18
[2019-01-15] MEDS: LEVOFLOXACIN 500 MG TAB PO SCH (06:34)
[2019-01-15] MEDS: METHYLPREDNISOLONE 40 MG INJ IV SCH ×2 (06:34→11:30)
[2019-01-15] MEDS: PIPER-TAZO 3.375 GM IV (PMX) 100 ML IVPB SCH ×2 (06:34→11:30)
[2019-01-15 07:20] VITALS: BP 99/55; PULSE 76; RESP 18
--- NOTE | 2019-01-15 08:08 | CONS ---
Assessment/Plan Assessment/Plan Assessment/Plan (Daily) Assessment recommendations; 1. Patient admitted with shortness of breath due to severe bilateral community- acquired pneumonia with significant clinical improvement. 2. History of smoking, with likely underlying COPD as well. Continue current supportive care. Continue current antibiotics. Obtain follow- up chest x-ray in 24 hours. Consultation Date/Type/Reason Admit Date/Time Jan 08, 2019 at 20:52 Initial Consult Date Type of Consult Pulmonary Patient condition is stable. Denies any shortness of breath. Complains of cough with scant yellow sputum production. Denies any fever, chills, chest pain, and hemoptysis. General exam; elderly male, ambulatory in the room. Currently no distress. Reason for Consultation HEENT exam; supple neck, no JVD. No lymphadenopathy. Midline trachea. No t hyromegaly. Patient has fair dentition. No neck masses. Chest exam; diminished breath sounds bilaterally S1-S2 audible, no murmurs. Regular rhythm. Abdomen exam; soft, nontender. No organomegaly. Bowel sounds audible. Extremity exam; no peripheral edema clubbing. 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 Date/Time of Note DATE: 01/15/19 TIME: 08:06 Exam/Review of Systems Exam Vitals Vital Signs Date Temp Pulse Resp B/P (MAP) Pulse Ox O2 O2 Flow FiO2 Time Delivery Rate 01/15/19 4.0 04:27 01/15/19 98.2 67 18 117/62 92 02:17 (80) 01/14/19 Nasal 21:00 Cannula 01/14/19 40 13:08 Intake and Output 01/14/19 01/14/19 01/15/19 1515:00 23:00 07:00 IntakeIntake Total 1300 ml 350 ml OutputOutput Total 1600 ml BalanceBalance -300 ml 350 ml Results Result Diagram: 01/15/19 0431 01/15/19 0431 Results 24hrs Laboratory Tests Test 01/15/19 04:31 White Blood Count 3.8 L Red Blood Count 4.02 L Hemoglobin 12.0 L Hematocrit 36.0 L Mean Corpuscular Volume 89.6 Mean Corpuscular Hemoglobin 29.9 Mean Corpuscular Hemoglobin Concent 33.3 Red Cell Distribution Width 12.8 Platelet Count 266 # Mean Platelet Volume 10.0 Immature Granulocytes % 1.800 H Neutrophils % Segmented Neutrophils % (Manual) 61 Band Neutrophils % (Manual) 14 H Lymphocytes % Lymphocytes % (Manual) 17 Reactive Lymphocytes % (Manual) 5 H Monocytes % Monocytes % (Manual) 3 Eosinophils % Basophils % Nucleated Red Blood Cells % 0.0 Immature Granulocytes # 0.070 H Neutrophils # Neutrophils # (Manual) 2.3 Band Neutrophils # 0.5 Lymphocytes (Manual) 0.6 L Lymphocytes # Reactive Lymphocytes # 0.1 H Monocytes # Monocytes # (Manual) 0.1 L Eosinophils # Basophils # Nucleated Red Blood Cells # Platelet Estimate NORMAL Giant Platelets 1 H Sodium Level 144 Potassium Level 4.8 Chloride Level 105 Carbon Dioxide Level 31 Anion Gap 8 Blood Urea Nitrogen 12 Creatinine 0.93 Est Glomerular Filtrat Rate mL/min > 60 Glucose Level 158 Calcium Level 9.0 Phosphorus Level 3.2 Magnesium Level 2.7 H Medications Medication Current Medications IV Flush (NS 3 ml) 3 ml PER PROTOCOL IV ; Start 01/09/19 at 00:00 Ondansetron HCl (Zofran Inj) 4 mg Q6H PRN IV NAUSEA/VOMITING Last administered on 01/14/19at 09:11; Admin Dose 4 MG; Start 01/09/19 at 00:00 Acetaminophen (Tylenol Tab) 650 mg Q6H PRN PO .PAIN 1-3 OR TEMP Last administered on 01/14/19at 02:00; Admin Dose 650 MG; Start 01/09/19 at 00:00 Acetaminophen/ Hydrocodone Bitart ([place] (5/325)) 1 tab Q6H PRN PO .PAIN 4-6; Start 01/09/19 at 00:00 Albuterol/ Ipratropium (Duoneb) 3 ml Q2H RESP THERAPY PRN HHN SHORTNESS OF BREATH; Start 01/09/19 at 00:00 Atorvastatin Calcium (Lipitor) 20 mg DAILY@21 PO Last administered on 01/14/19at 21:26; Admin Dose 20 MG; Start 01/09/19 at 21:00 Al Hydrox/Mg Hydrox/Simethicone (Mag-Al Plus) 30 ml Q6H PRN PO GASTROINTESTINAL UPSET; Start 01/09/19 at 06:00 Famotidine (Pepcid) 20 mg DAILY PO Last administered on 01/14/19at 08:12; Admin Dose 20 MG; Start 01/09/19 at 09:00 Guaifenesin/ Codeine Phosphate (Robitussin Ac Liquid Cup) 5 ml Q4H PRN PO cough Last administered on 01/14/19 02:03; Admin Dose 5 ML; Start 01/09/19 at 10:30 Albuterol/ Ipratropium (Duoneb) 3 ml Q6HWA RESP THERAPY HHN Last administered on 01/14/19 19:47; Admin Dose 3 ML; Start 01/09/19 at 14:00 Piperacillin Sod/ Tazobactam Sod 100 ml @ 200 mls/hr Q6 IVPB Last administered on 01/15/19 06:34; Admin Dose 200 MLS/HR; Start 01/10/19 at 12:00 Budesonide (Pulmicort (Neb)) 0.5 mg BID RESP THERAPY HHN Last administered on 01/14/19 19:47; Admin Dose 0.5 MG; Start 01/10/19 at 20:00 Doxycycline Hyclate (Vibramycin) 100 mg BID PO Last administered on 01/14/19 21:26; Admin Dose 100 MG; Start 01/13/19 at 21:00 Levofloxacin (Levaquin) 500 mg DAILY@06 PO Last administered on 01/15/19 06:34; Admin Dose 500 MG; Start 01/14/19 at 06:00 Methylprednisolone Sodium Succinate (Solu-Medrol) 40 mg Q6 IV Last administered on 01/15/19 06:34; Admin Dose 40 MG; Start 01/14/19 at 12:00 ANDI CASAREZ Jan 15, 2019 08:08
[2019-01-15] MEDS: DOXYCYCLINE 100 MG TAB PO SCH (08:36)
[2019-01-15] MEDS: FAMOTIDINE 20 MG TAB PO SCH (08:36)
--- NOTE | 2019-01-15 09:01 | PN ---
Date/Time of Note Date/Time of Note DATE: 01/15/19 TIME: 09:01 Assessment/Plan VTE Prophylaxis Risk score (from [facility])>0 risk: 3 SCD applied (from [facility]): Yes Pharmacological prophylaxis: NA/contraindicated Pharm contraindication: low risk/ambulating Lines/Catheters IV Catheter Type (from [facility]): Peripheral IV Urinary Cath still in place: No Assessment/Plan Assessment/Plan 1. Multifocal Pneumonia - Patients respiratory status remains stable at rest but still SOB with ambulation. - Pulmonology consultation appreciated and will continue steroids and neb treatments - ID consultation appreciated and adjustments made to antibiotics. Will continue on Levaquin, Doxy, and Zosyn - CT chest results noted 2. Sepsis secondary to PNA - remains afebrile with nl WBC - culture results noted 3. Dyslipidemia - Continue home meds 4. Dark stools - most likely GI irritation from steroids. Will check FOBT - PPI on board - hgb 12 this am which is improvement from yesterday 5. Disposition - Patient still requiring O2 supplementation at 4L - Accepted to [facility] at this time pending bed availability Result Diagram: 01/15/19 0431 01/15/19 0431 Results 24hrs Laboratory Tests Test 01/15/19 04:31 White Blood Count 3.8 L Red Blood Count 4.02 L Hemoglobin 12.0 L Hematocrit 36.0 L Mean Corpuscular Volume 89.6 Mean Corpuscular Hemoglobin 29.9 Mean Corpuscular Hemoglobin Concent 33.3 Red Cell Distribution Width 12.8 Platelet Count 266 # Mean Platelet Volume 10.0 Immature Granulocytes % 1.800 H Neutrophils % Segmented Neutrophils % (Manual) 61 Band Neutrophils % (Manual) 14 H Lymphocytes % Lymphocytes % (Manual) 17 Reactive Lymphocytes % (Manual) 5 H Monocytes % Monocytes % (Manual) 3 Eosinophils % Basophils % Nucleated Red Blood Cells % 0.0 Immature Granulocytes # 0.070 H Neutrophils # Neutrophils # (Manual) 2.3 Band Neutrophils # 0.5 Lymphocytes (Manual) 0.6 L Lymphocytes # Reactive Lymphocytes # 0.1 H Monocytes # Monocytes # (Manual) 0.1 L Eosinophils # Basophils # Nucleated Red Blood Cells # Platelet Estimate NORMAL Giant Platelets 1 H Sodium Level 144 Potassium Level 4.8 Chloride Level 105 Carbon Dioxide Level 31 Anion Gap 8 Blood Urea Nitrogen 12 Creatinine 0.93 Est Glomerular Filtrat Rate mL/min > 60 Glucose Level 158 Calcium Level 9.0 Phosphorus Level 3.2 Magnesium Level 2.7 H Subjective 24 Hr Interval Summary Free Text/Dictation Patient states he was experiencing dark stools this am but denies any denise bleeding. States shortness of breath is improving but still requiring 4L NC. Exam/Review of Systems Exam Vitals Vital Signs Date Temp Pulse Resp B/P (MAP) Pulse Ox O2 O2 Flow FiO2 Time Delivery Rate 01/15/19 98.5 76 18 99/55 (70) 98 Nasal 07:20 Cannula 01/15/19 4.0 04:27 01/14/19 40 13:08 Intake and Output 01/14/19 01/14/19 01/15/19 1515:00 23:00 07:00 IntakeIntake Total 1300 ml 350 ml OutputOutput Total 1600 ml BalanceBalance -300 ml 350 ml Exam General: Patient is laying in bed and answers questions appropriately Neck: Supple Respiratory: Diminished breath sounds, no crackles appreciated, no wheezing appreciated Cardiovascular: regular rate and rhythm, no obvious murmurs Gastrointestinal: soft, non-tender to palpation, bowel sounds heard. Neurological: Moves all extremities spontaneously Skin: No new skin lesions Results Results 24hrs Laboratory Tests Test 01/15/19 04:31 White Blood Count 3.8 L Red Blood Count 4.02 L Hemoglobin 12.0 L Hematocrit 36.0 L Mean Corpuscular Volume 89.6 Mean Corpuscular Hemoglobin 29.9 Mean Corpuscular Hemoglobin Concent 33.3 Red Cell Distribution Width 12.8 Platelet Count 266 # Mean Platelet Volume 10.0 Immature Granulocytes % 1.800 H Neutrophils % Segmented Neutrophils % (Manual) 61 Band Neutrophils % (Manual) 14 H Lymphocytes % Lymphocytes % (Manual) 17 Reactive Lymphocytes % (Manual) 5 H Monocytes % Monocytes % (Manual) 3 Eosinophils % Basophils % Nucleated Red Blood Cells % 0.0 Immature Granulocytes # 0.070 H Neutrophils # Neutrophils # (Manual) 2.3 Band Neutrophils # 0.5 Lymphocytes (Manual) 0.6 L Lymphocytes # Reactive Lymphocytes # 0.1 H Monocytes # Monocytes # (Manual) 0.1 L Eosinophils # Basophils # Nucleated Red Blood Cells # Platelet Estimate NORMAL Giant Platelets 1 H Sodium Level 144 Potassium Level 4.8 Chloride Level 105 Carbon Dioxide Level 31 Anion Gap 8 Blood Urea Nitrogen 12 Creatinine 0.93 Est Glomerular Filtrat Rate mL/min > 60 Glucose Level 158 Calcium Level 9.0 Phosphorus Level 3.2 Magnesium Level 2.7 H Medications Medication Current Medications IV Flush (NS 3 ml) 3 ml PER PROTOCOL IV ; Start 01/09/19 at 00:00 Ondansetron HCl (Zofran Inj) 4 mg Q6H PRN IV NAUSEA/VOMITING Last administered on 01/14/19 09:11; Admin Dose 4 MG; Start 01/09/19 at 00:00 Acetaminophen (Tylenol Tab) 650 mg Q6H PRN PO .PAIN 1-3 OR TEMP Last administered on 01/14/19 02:00; Admin Dose 650 MG; Start 01/09/19 at 00:00 Acetaminophen/ Hydrocodone Bitart ([place] (5/325)) 1 tab Q6H PRN PO .PAIN 4-6; Start 01/09/19 at 00:00 Albuterol/ Ipratropium (Duoneb) 3 ml Q2H RESP THERAPY PRN HHN SHORTNESS OF BREATH; Start 01/09/19 at 00:00 Atorvastatin Calcium (Lipitor) 20 mg DAILY@21 PO Last administered on 01/14/19 21:26; Admin Dose 20 MG; Start 01/09/19 at 21:00 Al Hydrox/Mg Hydrox/Simethicone (Mag-Al Plus) 30 ml Q6H PRN PO GASTROINTESTINAL UPSET; Start 01/09/19 at 06:00 Famotidine (Pepcid) 20 mg DAILY PO Last administered on 01/15/19 08:36; Admin Dose 20 MG; Start 01/09/19 at 09:00 Guaifenesin/ Codeine Phosphate (Robitussin Ac Liquid Cup) 5 ml Q4H PRN PO cough Last administered on 01/14/19 02:03; Admin Dose 5 ML; Start 01/09/19 at 10:30 Albuterol/ Ipratropium (Duoneb) 3 ml Q6HWA RESP THERAPY HHN Last administered on 01/14/19 19:47; Admin Dose 3 ML; Start 01/09/19 at 14:00 Piperacillin Sod/ Tazobactam Sod 100 ml @ 200 mls/hr Q6 IVPB Last administered on 01/15/19 06:34; Admin Dose 200 MLS/HR; Start 01/10/19 at 12:00 Budesonide (Pulmicort (Neb)) 0.5 mg BID RESP THERAPY HHN Last administered on 01/14/19 19:47; Admin Dose 0.5 MG; Start 01/10/19 at 20:00 Doxycycline Hyclate (Vibramycin) 100 mg BID PO Last administered on 01/15/19 08:36; Admin Dose 100 MG; Start 01/13/19 at 21:00 Levofloxacin (Levaquin) 500 mg DAILY@06 PO Last administered on 01/15/19 06:34; Admin Dose 500 MG; Start 01/14/19 at 06:00 Methylprednisolone Sodium Succinate (Solu-Medrol) 40 mg Q6 IV Last administered on 01/15/19 06:34; Admin Dose 40 MG; Start 01/14/19 at 12:00 ANKIT DOYLE MD Jan 15, 2019 09:01
[2019-01-15] MEDS: ALBUTEROL/IPRATROPIUM (NEB) 3 ML AMP HHN SCH ×2 (09:44→13:31)
[2019-01-15] MEDS: BUDESONIDE (NEB) 0.5MG/2ML AMP HHN SCH (09:45)
--- NOTE | 2019-01-15 12:39 | PDOCDIS ---
Discharge Instructions DIAGNOSIS Discharge Diagnosis 1. Multifocal Pneumonia 2. Sepsis secondary to PNA 3. Dyslipidemia 4. Tobacco abuse 5. ?Melena CONDITION [id number] Patient Condition: [id number] Stable HOME CARE INSTRUCTIONS: [id number] Diet Instructions: [id number] Low Fat /Cholesterol ACTIVITY: [id number] Activity Restrictions: [id number] Slowly Increase Activity [id number] Bathing Restrictions: [id number] as per recs at accepting facility FOLLOW UP/APPOINTMENTS Follow-up Plan As per accepting hospital ([facility]) recommendations upon discharge ANKIT DOYLE MD Jan 15, 2019 12:39
--- NOTE | 2019-01-15 12:50 | DS ---
Date/Time of Note Date/Time of Note DATE: 01/15/19 TIME: 12:43 Discharge Summary Admission/Discharge Info Admit Date/Time Jan 08, 2019 at 20:52 Discharge Date/Time Discharge Diagnosis 1. Multifocal Pneumonia 2. Sepsis secondary to PNA 3. Dyslipidemia 4. Tobacco abuse 5. ?Melena Patient Condition: Stable Consults Pulmonology- Dr. Zapien Infectious disease- Dr. Farmer Procedures PROCEDURE: XR Chest. CLINICAL INDICATION: chest pain TECHNIQUE: Single frontal view of the chest was obtained COMPARISON: CT CHEST 01/09/2019; DR CHEST 01/08/2019 FINDINGS: The heart and mediastinum are within normal limits. There are mild residual right upper lobe increased interstitial changes. There is no pleural effusion or pneumothorax. RPTAT: AA IMPRESSION: Mild residual right upper lobe increased interstitial changes. .Harrison Garcia MD, Date Time Electronically viewed and signed by .Harrison Garcia MD, MD on 01/15/2019 12:00 PROCEDURE: CT Chest without contrast. CLINICAL INDICATION: Severe sepsis. Abnormal chest x-ray. TECHNIQUE: CT scan of the chest without contrast. Coronal and sagittal reformatted images. DICOM images are available. CTDI 5.57 mGy, DLP 199.90 mGy- cm. One or more of the following dose reduction techniques were used: - Automated exposure control. - Adjustment of the mA and/or kV according to patient size. - Use of iterative reconstruction technique. COMPARISON: CHEST 01/08/2019 FINDINGS: Lungs: Dense confluent consolidation within the lung bases bilaterally. Similar appearing patchy infiltration within the right middle lobe and the right upper lobe. Findings are consistent with severe multifocal pneumonia. Mediastinum: Normal. Cardiovascular: Atherosclerotic vascular calcifications. Lymph nodes: Mild scattered reactive mediastinal adenopathy. Musculoskeletal: Normal. Upper abdomen: Normal. IMPRESSION: 1. Severe extensive multifocal pneumonia, most severe in the lung bases. 2. Diffuse scattered benign reactive mediastinal adenopathy. 3. Atherosclerotic vascular calcifications. RPTAT: HMJB .Rony Fermin MD, Date Time Electronically viewed and signed by .Rony Fermin MD, MD on 01/09/2019 13:41 PROCEDURE: XR Chest CLINICAL INDICATION: Possible Sepsis . TECHNIQUE: Frontal view of the chest COMPARISON: None available FINDINGS: The cardiomediastinal silhouette is within normal limits. Mild opacity in the medial right lung base. There is no evidence of significant pleural effusion or pneumothorax. No suspicious osseous lesions. IMPRESSION: Mild opacity in the medial right lung base may represent atelectasis or infiltrate. RPTAT: KK Physician Nazia Date Time Electronically viewed and signed by Rafael Betts, Physician on 01/08/2019 16:35 Hx of Present Illness This is a 63-year-old male with a history of dyslipidemia who presents the ER complaining of fever/chills, cough and nausea. Symptoms been going on for the past few days. Cough has been pretty much dry. When he presented to ER, he was febrile with a temperature of 1 4.6, tachycardic with heart rate of 134 and hypoxic with O2 sat of 87%. Initial blood pressure was 113/57 but at one point he was hypotensive with a blood pressure of 83/60. Chest x-ray shows mild opacity in the right lung base. Assessment/Plan 1. Sepsis: Secondary to pneumonia -IV antibiotic, IV fluid -Follow-up culture results -Influenza negative 2. Dyslipidemia: Continue statin Hospital Course Patient was admitted for treatment of sepsis secondary to multifocal pneumonia. Patient was started initially on treatment for CAP with Ceftriaxone and Azithromycin. Imaging studies were performed with findings of severe extensive multifocal pneumonia on CT scan chest. He was also started on bronchodilators and O2 therapy. Patients continued with shortness of breath with hypoxia and productive cough and antibiotics were broadened to Zosyn. Patient was spiking fevers with Tmax 101 and Infectious disease was consulted. Patient was started on Levaquin and Doxycycline in addition to the Zosyn. His shortness of breath improved but was still requiring 4-5L of supplemental O2 with a noted desaturation to 88% on 5L. Pulmonology was consulted and solumedrol was added to treatment regime. He was tolerating medications well but was difficult to wean down on O2 requirement. Patient was noted to have dark stools and FOBT was sent and pending. His hemoglobin remained stable at 12 and was switched to PPI given on steroids. Patients vitals remained stable and he was transferred to his [facility], [facility]. Home Meds Active Scripts Acetaminophen* (Tylophen*) 500 Mg Capsule, 1 CAP PO Q6H PRN for PAIN AND OR ELEVATED TEMP, #20 CAP Prov:IRIS AGUILERA MD 01/08/19 Levofloxacin* (Levaquin*) 750 Mg Tablet, 750 MG PO DAILY for 5 Days, TAB Prov:IRIS AGUILERA MD 01/08/19 Ibuprofen* (Motrin*) 600 Mg Tab, 600 MG PO Q6H PRN for PAIN AND OR ELEVATED TEMP, #30 TAB Prov:IRIS AGUILERA MD 01/08/19 Reported Medications Simvastatin* (Zocor*) 40 Mg Tablet, 40 MG PO QHS, #30 TAB 01/08/19 Discontinued Reported Medications Atorvastatin* (Atorvastatin*) 40 Mg Tablet, 40 MG PO QHS, #30 TAB 09/30/18 Discontinued Scripts Albuterol Sulfate* (Ventolin HFA*) 18 Gm Hfa.aer.ad, 2 PUFF INHALATION Q4H, #1 INHALER Prov:HUE STEPHENS MD 09/30/18 Ibuprofen* (Motrin*) 800 Mg Tab, 800 MG PO Q6H PRN for PAIN AND OR ELEVATED TEMP, #30 TAB Prov:HUE STEPHENS MD 09/30/18 Follow-up Plan As per accepting hospital ([facility]) recommendations upon discharge Primary Care Provider [facility] Time spent on discharge: > 30 minutes Pending Labs Laboratory Tests Test 01/15/19 04:31 White Blood Count 3.8 10^3/ul (4.8-10.8) Red Blood Count 4.02 10^6/ul (4.70-6.10) Hemoglobin 12.0 g/dl (14.0-18.0) Hematocrit 36.0 % (42.0-52.0) Mean Corpuscular Volume 89.6 fl (82.0-101.0) Mean Corpuscular Hemoglobin 29.9 pg (29.0-33.0) Mean Corpuscular Hemoglobin Concent 33.3 g/dl (32.0-37.0) Red Cell Distribution Width 12.8 % (11.5-14.5) Platelet Count 266 10^3/UL (140-415) Mean Platelet Volume 10.0 fl (7.4-10.4) Immature Granulocytes % 1.800 % (0.001-0.429) Neutrophils % % (39.0-77.0) Segmented Neutrophils % (Manual) 61 % (39-77) Band Neutrophils % (Manual) 14 % (0-4) Lymphocytes % % (15.0-51.0) Lymphocytes % (Manual) 17 % (15-51) Reactive Lymphocytes % (Manual) 5 % (0-0) Monocytes % % (0.0-11.0) Monocytes % (Manual) 3 % (0-11) Eosinophils % % (0.0-7.0) Basophils % % (0.0-2.0) Nucleated Red Blood Cells % 0.0 /100WBC (0.0-0.0) Immature Granulocytes # 0.070 10^3/ul (0.0-0.031) Neutrophils # 10^3/ul (1.6-7.5) Neutrophils # (Manual) 2.3 10^3/ul (1.6-7.5) Band Neutrophils # 0.5 10^3/ul (0.0-0.6) Lymphocytes (Manual) 0.6 10^3/ul (0.8-2.9) Lymphocytes # 10^3/ul (0.8-2.9) Reactive Lymphocytes # 0.1 10^3/ul (0.0-0.0) Monocytes # 10^3/ul (0.3-0.9) Monocytes # (Manual) 0.1 10^3/ul (0.3-0.9) Eosinophils # 10^3/ul (0.0-0.5) Basophils # 10^3/ul (0.0-0.1) Nucleated Red Blood Cells # 10^3/ul (0.0-0.0) Platelet Estimate NORMAL Giant Platelets 1 % (0-0) Sodium Level 144 mmol/L (135-144) Potassium Level 4.8 mmol/L (3.5-5.1) Chloride Level 105 mmol/L (97-110) Carbon Dioxide Level 31 mmol/L (21-31) Anion Gap 8 (5-13) Blood Urea Nitrogen 12 mg/dl (7-20) Creatinine 0.93 mg/dl (0.61-1.24) Est Glomerular Filtrat Rate mL/min > 60 mL/min (>60) Glucose Level 158 mg/dl (70-220) Calcium Level 9.0 mg/dl (8.4-10.2) Phosphorus Level 3.2 mg/dl (2.5-4.9) Magnesium Level 2.7 mg/dl (1.7-2.5) ANKIT DOYLE MD Jan 15, 2019 12:50
[2019-01-15 14:29] VITALS: BP 97/53; PULSE 88; RESP 18
--- NOTE | 2019-01-15 14:44 | CONS ---
Assessment/Plan Assessment/Plan Hospital Course (Demo Recall) No acute changes alert, feels good, still on nasal cannula Antimicrobials: Zosyn, Levaquin, doxycycline Microbiology: Cultures have been negative Physical examination: This is a well-developed well-nourished elderly man who is alert in no distress. Head atraumatic normocephalic. Neck is supple. Chest rise symmetrical breath sounds diminished bases. Heart: S1-S2. Abdomen soft bowel sounds present. Assessment: 1. Acute hypoxemic respiratory failure 2. Multifocal pneumonia 3. Resolving sepsis Plan: Clinically doing better, chest x-ray this morning noted, continue antibiotics Consultation Date/Type/Reason Admit Date/Time Jan 08, 2019 at 20:52 Initial Consult Date Type of Consult id Date/Time of Note DATE: 01/15/19 TIME: 14:42 Exam/Review of Systems Exam Vitals Vital Signs Date Temp Pulse Resp B/P (MAP) Pulse Ox O2 O2 Flow FiO2 Time Delivery Rate 01/15/19 98.0 88 18 97/53 (68) 96 Nasal 14:29 Cannula 01/15/19 3.0 13:34 01/14/19 40 13:08 Intake and Output 01/14/19 01/14/19 01/15/19 1414:59 22:59 06:59 IntakeIntake Total 1300 ml 350 ml OutputOutput Total 1600 ml BalanceBalance -300 ml 350 ml Results Result Diagram: 01/15/19 0431 01/15/19 0431 Results 24hrs Laboratory Tests Test 01/15/19 04:31 White Blood Count 3.8 L Red Blood Count 4.02 L Hemoglobin 12.0 L Hematocrit 36.0 L Mean Corpuscular Volume 89.6 Mean Corpuscular Hemoglobin 29.9 Mean Corpuscular Hemoglobin Concent 33.3 Red Cell Distribution Width 12.8 Platelet Count 266 # Mean Platelet Volume 10.0 Immature Granulocytes % 1.800 H Neutrophils % Segmented Neutrophils % (Manual) 61 Band Neutrophils % (Manual) 14 H Lymphocytes % Lymphocytes % (Manual) 17 Reactive Lymphocytes % (Manual) 5 H Monocytes % Monocytes % (Manual) 3 Eosinophils % Basophils % Nucleated Red Blood Cells % 0.0 Immature Granulocytes # 0.070 H Neutrophils # Neutrophils # (Manual) 2.3 Band Neutrophils # 0.5 Lymphocytes (Manual) 0.6 L Lymphocytes # Reactive Lymphocytes # 0.1 H Monocytes # Monocytes # (Manual) 0.1 L Eosinophils # Basophils # Nucleated Red Blood Cells # Platelet Estimate NORMAL Giant Platelets 1 H Sodium Level 144 Potassium Level 4.8 Chloride Level 105 Carbon Dioxide Level 31 Anion Gap 8 Blood Urea Nitrogen 12 Creatinine 0.93 Est Glomerular Filtrat Rate mL/min > 60 Glucose Level 158 Calcium Level 9.0 Phosphorus Level 3.2 Magnesium Level 2.7 H Medications Medication Current Medications IV Flush (NS 3 ml) 3 ml PER PROTOCOL IV ; Start 01/09/19 at 00:00 Ondansetron HCl (Zofran Inj) 4 mg Q6H PRN IV NAUSEA/VOMITING Last administered on 01/14/19 09:11; Admin Dose 4 MG; Start 01/09/19 at 00:00 Acetaminophen (Tylenol Tab) 650 mg Q6H PRN PO .PAIN 1-3 OR TEMP Last administered on 01/14/19 02:00; Admin Dose 650 MG; Start 01/09/19 at 00:00 Acetaminophen/ Hydrocodone Bitart ([place] (5/325)) 1 tab Q6H PRN PO .PAIN 4-6; Start 01/09/19 at 00:00 Albuterol/ Ipratropium (Duoneb) 3 ml Q2H RESP THERAPY PRN HHN SHORTNESS OF BREATH; Start 01/09/19 at 00:00 Atorvastatin Calcium (Lipitor) 20 mg DAILY@21 PO Last administered on 01/14/19 21:26; Admin Dose 20 MG; Start 01/09/19 at 21:00 Al Hydrox/Mg Hydrox/Simethicone (Mag-Al Plus) 30 ml Q6H PRN PO GASTROINTESTINAL UPSET; Start 01/09/19 at 06:00 Guaifenesin/ Codeine Phosphate (Robitussin Ac Liquid Cup) 5 ml Q4H PRN PO cough Last administered on 01/14/19 02:03; Admin Dose 5 ML; Start 01/09/19 at 10:30 Albuterol/ Ipratropium (Duoneb) 3 ml Q6HWA RESP THERAPY HHN Last administered on 01/15/19 13:31; Admin Dose 3 ML; Start 01/09/19 at 14:00 Piperacillin Sod/ Tazobactam Sod 100 ml @ 200 mls/hr Q6 IVPB Last administered on 01/15/19 11:30; Admin Dose 200 MLS/HR; Start 01/10/19 at 12:00 Budesonide (Pulmicort (Neb)) 0.5 mg BID RESP THERAPY HHN Last administered on 01/15/19at 09:45; Admin Dose 0.5 MG; Start 01/10/19 at 20:00 Doxycycline Hyclate (Vibramycin) 100 mg BID PO Last administered on 01/15/19 08:36; Admin Dose 100 MG; Start 01/13/19 at 21:00 Levofloxacin (Levaquin) 500 mg DAILY@06 PO Last administered on 01/15/19at 06:34; Admin Dose 500 MG; Start 01/14/19 at 06:00 Methylprednisolone Sodium Succinate (Solu-Medrol) 40 mg Q6 IV Last administered on 01/15/19 11:30; Admin Dose 40 MG; Start 01/14/19 at 12:00 Pantoprazole (Protonix Tab) 40 mg BID@06,18 PO ; Start 01/15/19 at 18:00 DANIEL EDDY NP Jan 15, 2019 14:44
[2019-01-15] MEDS ORDERED: PANTOPRAZOLE (EC) 40 MG TAB PO SCH (18:00)
== END 2019-01-15 15:13 | disposition short-term general hospital (02) | DRG 871 ==
LOC: E/R 15:32 → TEL 20:52 → PP2 01-14 18:08
PROVIDERS: ADMIT Internal Medicine; ATTEND Internal Medicine
DX: A41.9 Sepsis, unspecified organism (principal); J18.9 Pneumonia, unspecified organism; J96.01 Acute respiratory failure with hypoxia; K92.1 Melena; E78.5 Hyperlipidemia, unspecified; Z72.0 Tobacco use
CPT/HCPCS: 71045; 71250; 80048; 80053; 80069; 81003; 83605; 83735; 84100; 84484; 85025; 85610; 85730; 86480; 86635; 87040; 87070; 87086; 87400; 90686; 93005; 94640; 94664; 96374; 96375; J0456; J0696; J1885; J2405; J2543; J2920; J7030; J7050